=== PATIENT | female | born 1990 | race African-American/Black ===

== ENCOUNTER → 2020-03-26 11:01 | Outpatient (BNVA) | payer BC, SELFPAY | PROVIDERS: PCP Internal Medicine; Visit Provider Advanced Practice Midwife | DX: Z76.89 Persons encountering health services in other specified circumstances (principal) ==

== ENCOUNTER 2020-06-12 08:07 | Outpatient (REF) | payer BC, SELFPAY | END 2020-06-12 08:08 | disposition home or self-care (01) | LOC: HO.LAB 08:07 | PROVIDERS: PCP Internal Medicine; Visit Provider Internal Medicine | DX: Z20.822 Contact with and (suspected) exposure to COVID-19 (principal) | CPT/HCPCS: 36415; C9803; U0003 ==

== ENCOUNTER 2020-07-05 14:57 | Outpatient (REF) | payer BC, SELFPAY | END 2020-07-05 14:58 | disposition home or self-care (01) | LOC: HO.LAB 14:57 | PROVIDERS: PCP Internal Medicine; Visit Provider Advanced Practice Midwife | DX: Z01.419 Encounter for gynecological examination (general) (routine) without abnormal findings (principal) | CPT/HCPCS: 88142 ==

== ENCOUNTER 2021-04-01 09:37 | Outpatient (REF) | payer BC, SELFPAY ==
[2021-04-01 09:50] LABS: MANUAL DIFF FLAG NO
[2021-04-01 10:05] LABS: Basophils Percent Auto 0.4 % (0-2); Eosinophils Absolute Auto 0.2 X10*3/uL (0.0-0.4); Eosinophils Percent Auto 1.9 % (0-4); Hematocrit 42.3 % (37.0-47.0); Hemoglobin 14.3 g/dl (12.0-16.0); Imm Gran Abs Auto 0.03 X10*3/uL (0.00-0.03); Imm Gran Pct Auto 0.3 % (0.0-0.4); Lymphocytes Absolute Auto 2.2 X10*3/uL (1.2-4.9); Lymphocytes Percent Auto 24.3 % (20-40); Mean Corpuscular HGB Conc 33.8 g/dl (31.0-35.0); Mean Corpuscular Hemoglobin 31.4 pg (27.0-33.0); Mean Platelet Volume 9.7 fL (9.4-12.3); Monocytes Absolute Auto 0.5 X10*3/uL (0.1-1.2); Monocytes Percent Auto 5.7 % (2-11); Neutrophils Absolute Auto 6.18 x10*3/uL (2.0-8.3); Neutrophils Percent Auto 67.4 % (45-73); Platelet Count 264 X10*3/uL (160-400); Red Blood Count 4.55 X10*6/uL (4.20-5.50); Red Cell Distribution Width 12.4 % (11.0-16.0); White Blood Count 9.2 X10*3/uL (4.8-10.8)
[2021-04-01 10:50] LABS: Thyroid Stimulating Hormone 1.39 uIU/mL (0.32-4.0)
[2021-04-01 10:55] LABS: Alanine Aminotransferase 15 U/L (0-31); Albumin Level 4.3 g/dL (3.5-5.0); Alkaline Phosphatase 33 U/L (39-117); Anion Gap 13 (12-20); Aspartate Amino Transferase 19 U/L (5-31); Bilirubin Total 0.6 mg/dL (0.0-1.0); Blood Urea Nitrogen 9 mg/dL (9-16); Calcium 9.2 mg/dL (8.4-10.2); Carbon Dioxide 24 mmol/L (22-29); Chloride 107 mmol/L (96-108); Cholesterol 145 mg/dL; Estimated Glomerular Filt Rate > 60; Glucose Fasting 84 mg/dL (60-99); HDL Cholesterol 57 mg/dL; LDL Cholesterol Calculated 70 mg/dl; Potassium 4.4 mmol/L (3.3-5.1); Sodium 140 mmol/L (135-145); Total Protein 7.5 g/dL (6.5-8.0); Triglycerides 90 mg/dL
== END 2021-04-01 09:38 | disposition home or self-care (01) ==
LOC: HO.LAB 09:37
PROVIDERS: PCP Internal Medicine; Visit Provider Internal Medicine
DX: Z00.00 Encounter for general adult medical examination without abnormal findings (principal)
CPT/HCPCS: 36415; 80053; 80061; 84443; 85025

== ENCOUNTER → 2021-07-09 13:57 | Outpatient (BNVA) | payer BC, SELFPAY | PROVIDERS: Visit Provider Advanced Practice Midwife ==

== ENCOUNTER 2022-05-22 10:56 | Outpatient (REF) | payer BC, SELFPAY ==
[2022-05-22 11:09] LABS: MANUAL DIFF FLAG NO
[2022-05-22 11:38] LABS: Basophils Percent Auto 0.6 % (0-2); Eosinophils Absolute Auto 0.3 X10*3/uL (0.0-0.4); Eosinophils Percent Auto 3.9 % (0-4); Hematocrit 41.1 % (37.0-47.0); Hemoglobin 13.7 g/dl (12.0-16.0); Imm Gran Abs Auto 0.01 X10*3/uL (0.00-0.03); Imm Gran Pct Auto 0.2 % (0.0-0.4); Lymphocytes Absolute Auto 2.5 X10*3/uL (1.2-4.9); Lymphocytes Percent Auto 39.1 % (20-40); Mean Corpuscular HGB Conc 33.3 g/dl (31.0-35.0); Mean Corpuscular Hemoglobin 30.7 pg (27.0-33.0); Mean Corpuscular Volume 92.2 fL (80.0-98.0); Mean Platelet Volume 9.8 fL (9.4-12.3); Monocytes Absolute Auto 0.4 X10*3/uL (0.1-1.2); Monocytes Percent Auto 6.4 % (2-11); Neutrophils Absolute Auto 3.2 x10*3/uL (2.0-8.3); Neutrophils Percent Auto 49.8 % (45-73); Platelet Count 252 X10*3/uL (160-400); Red Blood Count 4.46 X10*6/uL (4.20-5.50); Red Cell Distribution Width 12.3 % (11.0-16.0); White Blood Count 6.4 X10*3/uL (4.8-10.8)
[2022-05-22 12:09] LABS: Alanine Aminotransferase 15 U/L (0-31); Albumin Level 4.5 g/dL (3.5-5.0); Alkaline Phosphatase 44 U/L (39-117); Anion Gap 13 (12-20); Aspartate Amino Transferase 18 U/L (5-31); Bilirubin Total 0.8 mg/dL (0.0-1.0); Blood Urea Nitrogen 8 mg/dL (9-16); Calcium 9.6 mg/dL (8.4-10.2); Carbon Dioxide 27 mmol/L (22-29); Chloride 104 mmol/L (96-108); Cholesterol 154 mg/dL; Estimated Glomerular Filt Rate > 60; Glucose Fasting 84 mg/dL (60-99); HDL Cholesterol 63 mg/dL; LDL Cholesterol Calculated 80 mg/dl; Potassium 4.3 mmol/L (3.3-5.1); Sodium 140 mmol/L (135-145); Total Protein 7.5 g/dL (6.5-8.0); Triglycerides 56 mg/dL
== END 2022-05-22 10:57 | disposition home or self-care (01) ==
LOC: HO.LAB 10:56
PROVIDERS: PCP Internal Medicine; Visit Provider Internal Medicine
DX: Z13.0 Encounter for screening for diseases of the blood and blood-forming organs and certain disorders involving the immune mechanism (principal); I10 Essential (primary) hypertension; E78.5 Hyperlipidemia, unspecified
CPT/HCPCS: 36415; 80053; 80061; 85025

== ENCOUNTER 2022-08-12 08:05 | Outpatient (REF) | payer BC, SELFPAY ==
[2022-08-14 02:04] LABS: HPV mRNA E6/E7 rflx Not Detected (Not Detected)
== END 2022-08-12 08:06 | disposition home or self-care (01) ==
LOC: HO.LNP 08:05
PROVIDERS: PCP Internal Medicine; Visit Provider Advanced Practice Midwife
DX: Z01.419 Encounter for gynecological examination (general) (routine) without abnormal findings (principal)
CPT/HCPCS: 87624; 88142

== ENCOUNTER 2023-03-12 08:41 | Outpatient (REF) | payer BC, SELFPAY ==
[2023-03-12 09:00] LABS: MANUAL DIFF FLAG NO
[2023-03-12 09:27] LABS: Basophils Percent Auto 0.5 % (0-2); Eosinophils Absolute Auto 0.1 X10*3/uL (0.0-0.4); Eosinophils Percent Auto 1.6 % (0-4); Hematocrit 38.3 % (37.0-47.0); Hemoglobin 13.1 g/dl (12.0-16.0); Imm Gran Abs Auto 0.01 X10*3/uL (0.00-0.03); Imm Gran Pct Auto 0.1 % (0.0-0.4); Lymphocytes Absolute Auto 2.3 X10*3/uL (1.2-4.9); Lymphocytes Percent Auto 26.3 % (20-40); Mean Corpuscular HGB Conc 34.2 g/dl (31.0-35.0); Mean Corpuscular Hemoglobin 31.4 pg (27.0-33.0); Mean Corpuscular Volume 91.8 fL (80.0-98.0); Mean Platelet Volume 9.5 fL (9.4-12.3); Monocytes Absolute Auto 0.6 X10*3/uL (0.1-1.2); Monocytes Percent Auto 6.8 % (2-11); Neutrophils Absolute Auto 5.6 x10*3/uL (2.0-8.3); Neutrophils Percent Auto 64.7 % (45-73); Platelet Count 230 X10*3/uL (160-400); Red Blood Count 4.17 X10*6/uL (4.20-5.50); Red Cell Distribution Width 12.2 % (11.0-16.0); White Blood Count 8.6 X10*3/uL (4.8-10.8)
[2023-03-12 10:31] LABS: Alanine Aminotransferase 12 U/L (0-31); Albumin Level 4.2 g/dL (3.5-5.0); Alkaline Phosphatase 28 U/L (39-117); Anion Gap 12 (12-20); Aspartate Amino Transferase 16 U/L (5-31); Bilirubin Total 0.6 mg/dL (0.0-1.0); Blood Urea Nitrogen 8 mg/dL (9-16); Calcium 9.8 mg/dL (8.4-10.2); Carbon Dioxide 23 mmol/L (22-29); Chloride 106 mmol/L (96-108); Cholesterol 132 mg/dL (<200); Estimated Glomerular Filt Rate > 60; Glucose Fasting 80 mg/dL (60-99); HDL Cholesterol 60 mg/dL (>40); LDL Cholesterol Calculated 63 mg/dL (<100); Potassium 4.3 mmol/L (3.3-5.1); Sodium 137 mmol/L (135-145); Total Protein 7.4 g/dL (6.5-8.0); Triglycerides 49 mg/dL (<150)
== END 2023-03-12 08:42 | disposition home or self-care (01) ==
LOC: HO.LAB 08:41
PROVIDERS: PCP Internal Medicine; Referring Provider Obstetrics & Gynecology; Visit Provider Internal Medicine
DX: N28.9 Disorder of kidney and ureter, unspecified (principal); E78.5 Hyperlipidemia, unspecified; D64.9 Anemia, unspecified
CPT/HCPCS: 36415; 80053; 80061; 85025

== ENCOUNTER 2023-04-16 09:02 | Outpatient (AMB) | payer BC, SELFPAY ==
[2023-04-16 09:05] VITALS: BP 118/66; PULSE 79; O2SAT 100; BMI 19.7
--- NOTE | 2023-04-16 09:05 | MHC.PC.OV ---
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 per policy Accompanied by: Self / Same As Patient Allergies No Known Allergies Allergy (Verified 04/16/23 09:06) Medication List - Last Reconciled 04/16/23 by Coy Fraser MD multivitamin (Daily Multi-Vitamin tablet) 1 tab PO DAILY vit no.[id number] 27 mg iron- 800 mcg ( Vitamin) 1 tab PO sumatriptan succinate 25 mg PO Q2-4H PRN Tobacco use date assessed: 08/26/22 Dental Screening Dental Screen Date: 04/16/23 Did you have a dental visit in the last 12 months?: Yes Did you have a dental problem in the last 6 months where you did not have access to dental care?: No Was dental information given to patient?: Patient has dentist HPI Annual Exam HPI Details healthy; 11 weeks [facility] Medical History Ocular migraine Anxiety Surgical History Hx of tonsillectomy Family History Father HTN (hypertension) Paternal Aunt Heart attack Paternal Grandmother Pancreatic cancer Maternal Grandmother Colon cancer Maternal Uncle Liver cancer Social History Housing: House Alcohol intake: current Alcohol intake frequency: a few times a month Patient Tobacco Use Status: Never used Tobacco e-Cigarette/Vaping Use: Never Used Second Hand Smoke Exposure: No Substance Use Type: Marijuana service: No Current occupational status: employed Sexual orientation: Straight/Heterosexual Gender identity: Female Cognitive needs: No Hearing needs: No Vision needs: Yes (glasses) Female Reproductive History Menstrual Age of Menarche: 14 Questionnaire PHQ-9 Over the last 2 weeks, how often have you been bothered by any of the following problems? 1. Little interest or pleasure in doing things: not at all 2. Feeling down, depressed, or hopeless: not at all 3. Trouble falling or staying asleep, or sleeping too much: not at all 4. Feeling tired or having little energy: not at all 5. Poor appetite or overeating: not at all 6. Feeling bad about yourself - or that you are a failure or have let yourself or your family down: not at all 7. Trouble concentrating on things, such as reading the newspaper or watching television: not at all 8. Moving or speaking so slowly that other people could have noticed. Or the opposite - being so fidgety or restless that you have been moving around a lot more than usual: not at all 9. Thoughts that you would be better off or of hurting yourself in some way: not at all Total score: 0 Depression Screening Interpretation: Negative Depression Screening Done: Yes Source: Developed by Drs. Guillaume Ramey, Trice Bose, Vernon Joseph and colleagues, with an educational shen from [employer]. Thrive Questionnaire Date Thrive assessed: 08/26/22 AUDIT C Alcohol Use Questionnaire (AUDIT-C) 1. How often do you have a drink containing alcohol?: 2-4 times a month 2. How many drinks containing alcohol do you have on a typical day when you are drinking?: 1 or 2 Total Score: 2 MARTIN-7 AMB Questionnaire MARTIN-7 Date MARTIN - 7 assessed: 08/26/22 Source: Developed by Drs. Guillaume Ramey, Trice Bose, Vernon Joseph and colleagues, with an educational shen from [employer]. Review of Systems Const Denies chills, Denies fatigue, Denies headache(s) and Denies weight loss Eyes Denies change in vision, Denies diplopia and Denies eye pain ENT Denies vertigo, Denies dizziness, Denies headache(s) and Denies nasal discharge Card Denies chest pain, Denies rapid heart rate and Denies dyspnea on exertion Resp Denies chest congestion, Denies cough, Denies pain with cough and Denies dyspnea on exertion GI Denies abdominal pain, Denies hematochezia and Denies change in bowel habits Musc Denies myalgias, Denies arthralgias and Denies joint swelling Skin/Breast Denies lesions and Denies unusual bruising Neuro Denies vertigo, Denies dizziness, Denies headache(s) and Denies focal weakness Endo Denies fatigue Physical exam (Primary Care) Vital Signs: Last Vital Signs Pulse 79 04/16/23 09:05 BP 118/66 04/16/23 09:05 Pulse Ox 100 04/16/23 09:05 Oxygen Delivery Method Room Air 04/16/23 09:05 BMI result Body Mass Index 19.7 Tobacco/Smoking Status: Tobacco use Status Tobacco use date assessed 08/26/22 04/16/23 09:10 Patient Tobacco Use Status Never used Tobacco 04/16/23 09:10 e-Cigarette/Vaping Use Never Used 04/16/23 09:10 PHQ-9: PHQ-9 Score PHQ-9: Total score 0 04/16/23 09:27 Depression Screening Interpretation: Negative Thrive Assessment: Date of Thrive Assessment Date Thrive assessed 08/26/22 04/16/23 09:10 Const General: cooperative, healthy appearing and no acute distress Orientation/consciousness: oriented to person, oriented to place and oriented to time HENMT Head: Yes normal to inspection, Yes normocephalic and Yes atraumatic Mouth: Normal oral and palatal mucosa present and tongue normal Throat: Yes posterior oropharynx normal and Yes uvula midline Eyes General: appearance normal, both eyes and all related structures Neck Neck: Yes normal visual inspection, Yes full ROM and Yes no lymphadenopathy Thyroid: Thyroid normal Carotids: normal carotid upstroke Chest Chest palpation & inspection: normal inspection of the chest Resp Effort & Inspection: normal respiratory effort and able to speak in complete sentences Auscultation: clear to auscultation bilaterally Cardio Jugular venous distension: no JVD Palpation: normal PMI Rate: regular rate Rhythm: regular rhythm Heart sounds: S1 normal heart sound present and S2 normal heart sound present GI Inspection: Yes normal to inspection Palpation (GI): Soft to palpation and No hepatosplenomegaly present Auscultation: normal bowel sounds General: Yes no CVA tenderness Back/Spine/Pelvis Back: no CVA tenderness Skin General skin exam: no rashes or lesions noted Neuro General: oriented to person, oriented to place and oriented to time Extrem General: Yes normal to inspection and Yes full ROM Office Procedures Flu Questionnaire Does the patient have a severe egg allergy?: No Does the patient have severe life threatening allergies?: No Does the patient have a fever or illness today?: No Has the patient ever had Guillain-Delavan Syndrome?: No Has the patient ever had any past reaction to a flu shot?: No Immunizations flu vacc [id number] 6mos up(PF) 60 mcg(15 mcgx4)/0.5 mL IM syringe Performing Provider: Coy Fraser MD Performing Location: [facility] Administered by: HANNAH Rubio on 04/16/23 09:27 Dose Route Admin Location Dispensed Lot Number Expiration Date 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 mL IM Left Deltoid 0.5 mL [id number] 11/28/23 [id number] [employer] VIS Given Date VIS Provided VIS Publication Date 04/16/23 Single Vaccine 21 Eligibility Eligibility Date Funding Source Not [facility] Eligible 04/16/23 Private Assessment and Plan Assessment & Plan (1) Physical exam: Code(s): Z00.00 - Encounter for general adult medical examination without abnormal findings Plan: stable; labs Orders: Orders Influenza [id number] Immunization Today Z23 - Encounter for immunization Medications: Refilled sumatriptan succinate do not exceed 8 doses per 24 hrs 25 mg PO Q2-4H PRN 20 tabs 5RF migraine headache Coding Level of Care Code Est Pt Prev Care 18-39y(04340) Diagnoses Physical exam Z00.00
== END 2023-04-16 09:32 | disposition home or self-care (01) ==
PROVIDERS: Visit Provider Internal Medicine
DX: Z00.00 Encounter for general adult medical examination without abnormal findings (principal); Z23 Encounter for immunization
CPT/HCPCS: 90471; 90686; 99395

== ENCOUNTER 2023-05-06 09:22 | Outpatient (AMB) | payer BC, SELFPAY ==
--- NOTE | 2023-05-06 09:26 | A.OFFVIS_ITS ---
Intake Vital Signs 3 05/06/23 09:44 Height 54 ft Weight 113 lb 2 oz BMI 0.2 BP 123/66 Blood Pressure Location Lt brachial Position Sitting Pulse 89 Intake Visit Reasons: Pilonidal cyst without abscess Intake Note: Patient is seen in office for evaluation and treatment of a pilonidal cyst. 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 This started approximately 1.5 years ago and she reports multiple recurrent infections resulting in increased pain with sitting along with redness in the skin. She denies any bleeding or discharge and denies needing incision and drainage. The most recent infection occurred approximately 2 weeks ago and resolved spontaneously. She denies any surgery in this location. She is concerned about recurrent infections during her and was interested in having pilonidal cystectomy. [facility] Medical History Ocular migraine Anxiety Surgical History Hx of tonsillectomy Family History Father HTN (hypertension) Paternal Aunt Heart attack Paternal Grandmother Pancreatic cancer Maternal Grandmother Colon cancer Maternal Uncle Liver cancer Social History Housing: House Alcohol intake: current Alcohol intake frequency: a few times a month Patient Tobacco Use Status: Never used Tobacco e-Cigarette/Vaping Use: Never Used Second Hand Smoke Exposure: No Substance Use Type: Marijuana service: No Current occupational status: employed Sexual orientation: Straight/Heterosexual Gender identity: Female Cognitive needs: No Hearing needs: No Vision needs: Yes (glasses) Female Reproductive History Menstrual Age of Menarche: 14 Review of Systems Const All systems reviewed & are unremarkable except as noted in HPI and below Denies chills, Denies fever(s) and Reports headache(s) ENT Reports headache(s) Skin/Breast Reports as per HPI Neuro Reports headache(s) Physical Exam Const General: cooperative and no acute distress Nutritional Appearance: well nourished Orientation/consciousness: patient oriented x3 Limitations: no limitations HEENT Head: Yes normocephalic and Yes atraumatic Ears: hearing grossly normal bilaterally Resp Effort & Inspection: normal respiratory effort, no audible wheezes, no cough and no respiratory distress Cardio Jugular venous distension: no JVD GI Inspection: Yes normal to inspection Back/Spine/Pelvis Back/spine/pelvis image: 2 1. Bluish discoloration consistent with a prior pilonidal cyst abscess measuring approximately 1 cm in diameter. There is tenderness to palpation although no fluctuance noted. Skin Other: Warm, dry, no rash Neuro General: patient oriented x3 Extrem General: Yes no clubbing, cyanosis or edema Assessment & Plan Assessment & Plan (1) Pilonidal cyst: Code(s): L05.91 - Pilonidal cyst without abscess Plan 33-year-old female patient presenting with recurring pilonidal infections which have developed over the past 1.5 years none requiring incision and drainage. Patient is currently 14 weeks and entering her 2nd trimester. It may be possible to perform a local excision of this lesion either under local anesthesia or with intravenous sedation. I reviewed the procedure, risks, and alternatives, and she consents to A pilonidal cystectomy. She will call us when she is ready to schedule the procedure. Coding Level of Care Code New Pt Level 4 (89311) Diagnoses Pilonidal cyst L05.91
[2023-05-06 09:44] VITALS: BP 123/66; PULSE 89
== END 2023-05-06 09:46 | disposition home or self-care (01) ==
PROVIDERS: PCP Internal Medicine; Visit Provider Surgery
DX: L05.91 Pilonidal cyst without abscess (principal)
CPT/HCPCS: 99204

== ENCOUNTER → 2023-05-06 09:22 | Outpatient (BNVA) | payer BC, SELFPAY | PROVIDERS: PCP Internal Medicine; Visit Provider Surgery ==

== ENCOUNTER 2024-02-01 09:51 | Outpatient (AMB) | payer OTHER, SELFPAY ==
[2024-02-01 09:53] VITALS: BP 116/74; PULSE 62; O2SAT 98; BMI 19.2
--- NOTE | 2024-02-01 09:53 | MHC.PC.OV ---
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 Accompanied by: Self / Same As Patient Allergies No Known Allergies Allergy (Verified 02/01/24 09:53) Tobacco use date assessed: 02/01/24 Dental Screening Dental Screen Date: 02/01/24 Did you have a dental visit in the last 12 months?: Yes Did you have a dental problem in the last 6 months where you did not have access to dental care?: No Was dental information given to patient?: Patient has dentist HPI Lt wrist pain HPI Details left wrist pain for a month; carries infant on that side [facility] Medical History Ocular migraine Anxiety Surgical History Hx of tonsillectomy Family History Father HTN (hypertension) Paternal Aunt Heart attack Paternal Grandmother Pancreatic cancer Maternal Grandmother Colon cancer Maternal Uncle Liver cancer Social History Housing: House Alcohol intake: current Alcohol intake frequency: a few times a month Patient Tobacco Use Status: Never used Tobacco Tobacco use type: Cigarette e-Cigarette/Vaping Use: Never Used Second Hand Smoke Exposure: No Substance Use Type: Marijuana service: No Current occupational status: employed Sexual orientation: Straight/Heterosexual Gender identity: Female Cognitive needs: No Hearing needs: No Vision needs: Yes (glasses) Female Reproductive History Menstrual Age of Menarche: 14 Questionnaire PHQ-9 Over the last 2 weeks, how often have you been bothered by any of the following problems? 1. Little interest or pleasure in doing things: not at all 2. Feeling down, depressed, or hopeless: not at all 3. Trouble falling or staying asleep, or sleeping too much: not at all 4. Feeling tired or having little energy: not at all 5. Poor appetite or overeating: not at all 6. Feeling bad about yourself - or that you are a failure or have let yourself or your family down: not at all 7. Trouble concentrating on things, such as reading the newspaper or watching television: not at all 8. Moving or speaking so slowly that other people could have noticed. Or the opposite - being so fidgety or restless that you have been moving around a lot more than usual: not at all 9. Thoughts that you would be better off or of hurting yourself in some way: not at all Total score: 0 Depression Screening Interpretation: Negative Depression Screening Done: Yes Source: Developed by Drs. Guillaume Ramey, Trice Bose, Vernon Joseph and colleagues, with an educational shen from [employer]. Thrive Questionnaire Date Thrive assessed: 02/01/24 I am a: Patient What is your living situation today?: I have a steady place to live Within the past 12 months, did the food you bought not last and you didn't have the money to get more?: Never true Within the past 12 months, did you worry whether your food would run out before you got money to buy more?: Never true THRIVE Score: 0 AUDIT C Alcohol Use Questionnaire (AUDIT-C) 1. How often do you have a drink containing alcohol?: 2-4 times a month 2. How many drinks containing alcohol do you have on a typical day when you are drinking?: 1 or 2 Total Score: 2 MRATIN-7 AMB Questionnaire MARTIN-7 Date MARTIN - 7 assessed: 02/01/24 Feeling nervous, anxious, or on edge: 0 = Not at all Not being able to stop or control worryin = Not at all Worrying too much about different things: 0 = Not at all Trouble relaxin = Not at all Being so restless that it is hard to sit still: 0 = Not at all Becoming easily annoyed or irritable: 0 = Not at all Feeling afraid as if something awful might happen: 0 = Not at all Total MARTIN-7 score (0-4 normal; 5-9 mild; 10-14 moderate; 15-21 severe): 0 Source: Developed by Drs. Guillaume Ramey, Trice Bose, Vernon Joseph and colleagues, with an educational shen from [employer]. MARTIN-7 Assessment Billing MARTIN-7 Assessment Tool: MARTIN-7 Assessment 30584 Review of Systems Const Denies chills, Denies headache(s) and Denies weight loss ENT Denies headache(s) Card Denies chest pain, Denies syncope, Denies irregular heart rhythm and Denies dyspnea Resp Denies chest congestion, Denies cough and Denies dyspnea GI Denies abdominal pain, Denies change in stool character, Denies nausea and Denies vomiting Musc Denies deformity and Denies joint swelling Neuro Denies syncope and Denies headache(s) Physical exam (Primary Care) Vital Signs: Last Vital Signs Pulse 62 02/01/24 09:53 BP 116/74 02/01/24 09:53 Pulse Ox 98 02/01/24 09:53 Oxygen Delivery Method Room Air 02/01/24 09:53 BMI result Body Mass Index 19.2 Tobacco/Smoking Status: Tobacco use Status Tobacco use date assessed 02/01/24 02/01/24 09:58 Patient Tobacco Use Status Never used Tobacco 02/01/24 09:58 Tobacco use type Cigarette 02/01/24 09:58 e-Cigarette/Vaping Use Never Used 02/01/24 09:58 PHQ-9: PHQ-9 Score PHQ-9: Total score 0 02/01/24 09:58 Depression Screening Interpretation: Negative Thrive Assessment: Date of Thrive Assessment Date Thrive assessed 02/01/24 02/01/24 09:58 Const General: cooperative, comfortable, no acute distress and alert Neck Neck: Yes no lymphadenopathy Thyroid: Thyroid normal Resp Effort & Inspection: normal respiratory effort Auscultation: clear to auscultation bilaterally Percussion: percussion normal Cardio Jugular venous distension: no JVD Palpation: normal PMI Rate: regular rate Rhythm: regular rhythm Heart sounds: S1 normal heart sound present and S2 normal heart sound present GI Inspection: Yes normal to inspection Palpation (GI): No hepatosplenomegaly present Skin General skin exam: no rashes or lesions noted Extrem General: Yes no clubbing, cyanosis or edema Assessment and Plan Assessment & Plan (1) Tendonitis of wrist, left: Code(s): M77.8 - Other enthesopathies, not elsewhere classified Plan: ice nsaids brace Medications: New arm brace (Wrist Brace Medium) As directed 1 ea 0RF Coding Level of Care Code Est Pt Level 3 (35056) Diagnoses Tendonitis of wrist, left M77.8 Additional Codes MARTIN-7 Assessment Billing - MARTIN-7 Assessment Tool: MARTIN-7 Assessment 40631 ([id number])
== END 2024-02-01 10:10 | disposition home or self-care (01) ==
PROVIDERS: PCP Internal Medicine; Visit Provider Internal Medicine
DX: M77.8 Other enthesopathies, not elsewhere classified (principal)
CPT/HCPCS: 99213

== ENCOUNTER 2024-04-21 09:07 | Outpatient (REF) | payer OTHER, SELFPAY ==
[2024-04-21 09:57] LABS: MANUAL DIFF FLAG NO
[2024-04-21 10:38] LABS: Basophils Percent Auto 0.5 % (0-2); Eosinophils Absolute Auto 0.1 X10*3/uL (0.0-0.4); Eosinophils Percent Auto 1.8 % (0-4); Hematocrit 39.7 % (37.0-47.0); Hemoglobin 13.4 g/dl (12.0-16.0); Imm Gran Abs Auto 0.01 X10*3/uL (0.00-0.03); Imm Gran Pct Auto 0.2 % (0.0-0.4); Lymphocytes Absolute Auto 2.6 X10*3/uL (1.2-4.9); Lymphocytes Percent Auto 41.4 % (20-40); Mean Corpuscular HGB Conc 33.8 g/dl (31.0-35.0); Mean Corpuscular Hemoglobin 30.8 pg (27.0-33.0); Mean Corpuscular Volume 91.3 fL (80.0-98.0); Mean Platelet Volume 9.9 fL (9.4-12.3); Monocytes Absolute Auto 0.4 X10*3/uL (0.1-1.2); Monocytes Percent Auto 6.9 % (2-11); Neutrophils Absolute Auto 3.1 x10*3/uL (2.0-8.3); Neutrophils Percent Auto 49.2 % (45-73); Platelet Count 239 X10*3/uL (160-400); Red Blood Count 4.35 X10*6/uL (4.20-5.50); White Blood Count 6.2 X10*3/uL (4.8-10.8)
[2024-04-21 11:26] LABS: Alanine Aminotransferase 21 U/L (0-31); Albumin Level 4.6 g/dL (3.5-5.0); Anion Gap 15 (12-20); Aspartate Amino Transferase 24 U/L (5-31); Bilirubin Total 0.8 mg/dL (0.0-1.0); Blood Urea Nitrogen 13 mg/dL (9-16); Calcium 9.6 mg/dL (8.4-10.2); Carbon Dioxide 23 mmol/L (22-29); Chloride 106 mmol/L (96-108); Cholesterol 149 mg/dL (<200); Estimated Glomerular Filt Rate > 60; Glucose Fasting 64 mg/dL (60-99); HDL Cholesterol 76 mg/dL (>40); LDL Cholesterol Calculated 66 mg/dL (<100); Sodium 140 mmol/L (135-145); Thyroid Stimulating Hormone 1.06 uIU/mL (0.32-4.0); Total Protein 7.6 g/dL (6.5-8.0); Triglycerides 37 mg/dL (<150)
[2024-04-21 11:33] LABS: Alkaline Phosphatase 46 U/L (39-117)
== END 2024-04-21 09:08 | disposition home or self-care (01) ==
LOC: HO.LAB 09:07
PROVIDERS: PCP Internal Medicine; Visit Provider Internal Medicine
DX: Z00.00 Encounter for general adult medical examination without abnormal findings (principal); F44.1 Dissociative fugue; Z13.6 Encounter for screening for cardiovascular disorders; Z13.220 Encounter for screening for lipoid disorders; Z13.0 Encounter for screening for diseases of the blood and blood-forming organs and certain disorders involving the immune mechanism; Z13.29 Encounter for screening for other suspected endocrine disorder
CPT/HCPCS: 36415; 80053; 80061; 84443; 85025; 96127

== ENCOUNTER 2024-04-21 09:07 | Outpatient (AMB) | payer OTHER, SELFPAY ==
--- NOTE | 2024-04-21 09:09 | A.OFFPC_ITS ---
Vital Signs 04/21/24 09:10 Height 5 ft 4 in Weight 102 lb 4 oz BMI 17.5 BP 120/66 Blood Pressure Location Lt brachial Position Sitting Pulse 76 Pulse Source Pulse Oximeter Pulse Oximetry (%) 98 Oxygen Delivery Method Room Air Intake Visit Reasons: annual Intake Note: Patient is here today for a physical. Pt decline flu shot today. 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 Accompanied by: Child Allergies No Known Allergies Allergy (Verified 04/21/24 09:10) Medication List - Last Reconciled 04/24/24 by Coy Fraser MD arm brace (Wrist Brace Medium) As directed multivitamin (Daily Multi-Vitamin tablet) 1 tab PO DAILY vit no.[id number] 27 mg iron- 800 mcg ( Vitamin) 1 tab PO Tobacco use date assessed: 04/21/24 Dental Screening Dental Screen Date: 02/01/24 HPI annual HPI Details healthy REPLACED BY [facility] Medical History Ocular migraine Anxiety Surgical History (Updated 04/21/24 @ 09:13 by HANNAH Hernandez) History of delivery Hx of tonsillectomy Family History (Updated 04/21/24 @ 09:10 by HANNAH Hernandez) Father HTN (hypertension) Paternal Aunt Heart attack Paternal Grandmother Pancreatic cancer Maternal Grandmother Colon cancer Maternal Uncle Liver cancer Social History Housing: House Alcohol intake: current Alcohol intake frequency: a few times a month Patient Tobacco Use Status: Never used Tobacco Tobacco use type: Cigarette e-Cigarette/Vaping Use: Never Used Second Hand Smoke Exposure: No Substance Use Type: Marijuana service: No Current occupational status: employed Sexual orientation: Straight/Heterosexual Gender identity: Female Cognitive needs: No Hearing needs: No Vision needs: Yes (glasses) Female Reproductive History Menstrual Age of Menarche: 14 Questionnaire PHQ-9 Over the last 2 weeks, how often have you been bothered by any of the following problems? 1. Little interest or pleasure in doing things: not at all 2. Feeling down, depressed, or hopeless: not at all 3. Trouble falling or staying asleep, or sleeping too much: not at all 4. Feeling tired or having little energy: not at all 5. Poor appetite or overeating: not at all 6. Feeling bad about yourself - or that you are a failure or have let yourself or your family down: not at all 7. Trouble concentrating on things, such as reading the newspaper or watching television: not at all 8. Moving or speaking so slowly that other people could have noticed. Or the opposite - being so fidgety or restless that you have been moving around a lot more than usual: not at all 9. Thoughts that you would be better off or of hurting yourself in some way: not at all Total score: 0 Depression Screening Interpretation: Negative Depression Screening Done: Yes Source: Developed by Drs. Guillaume Ramey, Trice Bose, Vernon Joseph and colleagues, with an educational shen from [employer]. Thrive Questionnaire Date Thrive assessed: 04/21/24 I am a: Patient What is your living situation today?: I have a steady place to live Within the past 12 months, did the food you bought not last and you didn't have the money to get more?: Never true Within the past 12 months, did you worry whether your food would run out before you got money to buy more?: Never true Do you have trouble paying for medicines?: No Do you have trouble getting transportation to medical appointments?: No Do you have trouble paying your heating and electricity bill?: No Do you have trouble taking care of your child, family member or friend?: No Do you have trouble with day-to-day activities such as bathing, preparing meals, shopping, managing finances, etc.?: No Are you currently unemployed and looking for a job?: No Are you interested in more education?: No Please select the resources that you would like help with: None Currently or been in a relationship where the following occur: No concerns reported THRIVE Score: 0 AUDIT C Alcohol Use Questionnaire (AUDIT-C) 1. How often do you have a drink containing alcohol?: Monthly or less 2. How many drinks containing alcohol do you have on a typical day when you are drinking?: 1 or 2 3. How often do you have six or more drinks on one occasion?: Never Total Score: 1 MARTIN-7 AMB Questionnaire MARTIN-7 Date MARTIN - 7 assessed: 04/21/24 Feeling nervous, anxious, or on edge: 0 = Not at all Not being able to stop or control worryin = Not at all Worrying too much about different things: 0 = Not at all Trouble relaxin = Not at all Being so restless that it is hard to sit still: 0 = Not at all Becoming easily annoyed or irritable: 0 = Not at all Feeling afraid as if something awful might happen: 0 = Not at all Total MARTIN-7 score (0-4 normal; 5-9 mild; 10-14 moderate; 15-21 severe): 0 Source: Developed by Drs. Guillaume Ramey, Trice Bose, Vernon Joseph and colleagues, with an educational shen from [employer]. Review of Systems Const Denies chills, Denies fatigue, Denies headache(s) and Denies weight loss Eyes Denies change in vision, Denies diplopia and Denies eye pain ENT Denies vertigo, Denies dizziness, Denies headache(s) and Denies nasal discharge Card Denies chest pain, Denies rapid heart rate and Denies dyspnea on exertion Resp Denies chest congestion, Denies cough, Denies pain with cough and Denies dyspnea on exertion GI Denies abdominal pain, Denies hematochezia and Denies change in bowel habits Musc Denies myalgias, Denies arthralgias and Denies joint swelling Skin/Breast Denies lesions and Denies unusual bruising Neuro Denies vertigo, Denies dizziness, Denies headache(s) and Denies focal weakness Endo Denies fatigue Physical exam (Primary Care) Vital Signs: Last Vital Signs Pulse 76 04/21/24 09:10 BP 120/66 04/21/24 09:10 Pulse Ox 98 04/21/24 09:10 Oxygen Delivery Method Room Air 04/21/24 09:10 BMI result Body Mass Index 17.5 Tobacco/Smoking Status: Tobacco use Status Tobacco use date assessed 04/21/24 04/21/24 09:15 Patient Tobacco Use Status Never used Tobacco 04/21/24 09:15 Tobacco use type Cigarette 04/21/24 09:15 e-Cigarette/Vaping Use Never Used 04/21/24 09:15 PHQ-9: PHQ-9 Score PHQ-9: Total score 0 04/21/24 09:15 Depression Screening Interpretation: Negative Thrive Assessment: Date of Thrive Assessment Date Thrive assessed 04/21/24 04/21/24 09:15 Currently or been in a relationship where the following occur: No concerns reported Const General: cooperative, healthy appearing and no acute distress Orientation/consciousness: oriented to person, oriented to place and oriented to time HENMT Head: Yes normal to inspection, Yes normocephalic and Yes atraumatic Mouth: Normal oral and palatal mucosa present and tongue normal Throat: Yes posterior oropharynx normal and Yes uvula midline Eyes General: appearance normal, both eyes and all related structures Neck Neck: Yes normal visual inspection, Yes full ROM and Yes no lymphadenopathy Thyroid: Thyroid normal Carotids: normal carotid upstroke Chest Chest palpation & inspection: normal inspection of the chest Resp Effort & Inspection: normal respiratory effort and able to speak in complete sentences Auscultation: clear to auscultation bilaterally Cardio Jugular venous distension: no JVD Palpation: normal PMI Rate: regular rate Rhythm: regular rhythm Heart sounds: S1 normal heart sound present and S2 normal heart sound present GI Inspection: Yes normal to inspection Palpation (GI): Soft to palpation and No hepatosplenomegaly present Auscultation: normal bowel sounds General: Yes no CVA tenderness Back/Spine/Pelvis Back: no CVA tenderness Skin General skin exam: no rashes or lesions noted Neuro General: oriented to person, oriented to place and oriented to time Extrem General: Yes normal to inspection and Yes full ROM Coding Level of Care Code Est Pt Prev Care 18-39y(30070) Diagnoses Physical exam Z00.00 Assessment & Plan Assessment & Plan (1) Physical exam: Code(s): Z00.00 - Encounter for general adult medical examination without abnormal fi ndings Category: Medical Plan: stable; do labs Orders: Orders Thyroid Stimulating Hormone 04/21/24 Z13.29 - Encounter for screening for other suspected endocrine disorder Comprehensive Cantil. Panel Fast 04/21/24 Z13.9 - Encounter for screening, unspecified Lipid Panel 04/21/24 Z13.220 - Encounter for screening for lipoid disorders Complete Blood Count Auto Diff 04/21/24 Z13.0 - Encounter for screening for diseases of the blood and blood-forming organs and certain disorders involving the immune mechanism
[2024-04-21 09:10] VITALS: BP 120/66; PULSE 76; O2SAT 98; BMI 17.5
== END 2024-04-21 09:27 | disposition home or self-care (01) ==
PROVIDERS: PCP Internal Medicine; Visit Provider Internal Medicine
DX: Z00.00 Encounter for general adult medical examination without abnormal findings (principal)

== ENCOUNTER 2024-07-12 09:43 | Outpatient (AMB) | payer BC, SELFPAY ==
--- NOTE | 2024-07-12 09:46 | MHC.PC.OV ---
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 Accompanied by: Self / Same As Patient Allergies No Known Allergies Allergy (Verified 07/12/24 09:48) Tobacco use date assessed: 07/12/24 Dental Screening Dental Screen Date: 07/12/24 Did you have a dental visit in the last 12 months?: Yes Did you have a dental problem in the last 6 months where you did not have access to dental care?: No Was dental information given to patient?: Patient has dentist HPI unintentional weight loss HPI Details several piund weight loss; eating well; breast feeding [facility] Medical History (Updated 07/12/24 @ 10:02 by Coy Fraser MD) Ocular migraine Anxiety Surgical History History of delivery Hx of tonsillectomy Family History Father HTN (hypertension) Paternal Aunt Heart attack Paternal Grandmother Pancreatic cancer Maternal Grandmother Colon cancer Maternal Uncle Liver cancer Social History Housing: House Alcohol intake: current Alcohol intake frequency: a few times a month Patient Tobacco Use Status: Never used Tobacco e-Cigarette/Vaping Use: Never Used Second Hand Smoke Exposure: No Substance Use Type: Marijuana service: No Current occupational status: unemployed Sexual orientation: Straight/Heterosexual Gender identity: Female Cognitive needs: No Hearing needs: No Vision needs: Yes (glasses) Female Reproductive History Menstrual Age of Menarche: 14 Questionnaire PHQ-9 Over the last 2 weeks, how often have you been bothered by any of the following problems? 1. Little interest or pleasure in doing things: not at all 2. Feeling down, depressed, or hopeless: not at all 3. Trouble falling or staying asleep, or sleeping too much: not at all 4. Feeling tired or having little energy: not at all 5. Poor appetite or overeating: not at all 6. Feeling bad about yourself - or that you are a failure or have let yourself or your family down: not at all 7. Trouble concentrating on things, such as reading the newspaper or watching television: not at all 8. Moving or speaking so slowly that other people could have noticed. Or the opposite - being so fidgety or restless that you have been moving around a lot more than usual: not at all 9. Thoughts that you would be better off or of hurting yourself in some way: not at all Total score: 0 Depression Screening Interpretation: Negative Depression Screening Done: Yes Source: Developed by Drs. Guillaume Ramey, Trice Bose, Vernon Joseph and colleagues, with an educational shen from [employer]. Thrive Questionnaire Date Thrive assessed: 07/12/24 I am a: Patient What is your living situation today?: I have a steady place to live Within the past 12 months, did the food you bought not last and you didn't have the money to get more?: Never true Within the past 12 months, did you worry whether your food would run out before you got money to buy more?: Never true Do you have trouble paying for medicines?: No Do you have trouble getting transportation to medical appointments?: No Do you have trouble paying your heating and electricity bill?: No Do you have trouble taking care of your child, family member or friend?: No Do you have trouble with day-to-day activities such as bathing, preparing meals, shopping, managing finances, etc.?: No Are you currently unemployed and looking for a job?: No Are you interested in more education?: No Please select the resources that you would like help with: None Currently or been in a relationship where the following occur: No concerns reported THRIVE Score: 0 AUDIT C Alcohol Use Questionnaire (AUDIT-C) 1. How often do you have a drink containing alcohol?: Monthly or less 2. How many drinks containing alcohol do you have on a typical day when you are drinking?: 1 or 2 3. How often do you have six or more drinks on one occasion?: Never Total Score: 1 MARTIN-7 AMB Questionnaire MARTIN-7 Date MARTIN - 7 assessed: 07/12/24 Feeling nervous, anxious, or on edge: 0 = Not at all Not being able to stop or control worryin = Not at all Worrying too much about different things: 0 = Not at all Trouble relaxin = Not at all Being so restless that it is hard to sit still: 0 = Not at all Becoming easily annoyed or irritable: 0 = Not at all Feeling afraid as if something awful might happen: 0 = Not at all Total MARTIN-7 score (0-4 normal; 5-9 mild; 10-14 moderate; 15-21 severe): 0 Source: Developed by Drs. Guillaume Ramey, Trice Bose, Vernon Joseph and colleagues, with an educational shen from [employer]. Review of Systems Const Denies chills, Denies headache(s) and Denies weight loss ENT Denies headache(s) Card Denies chest pain, Denies syncope, Denies irregular heart rhythm and Denies dyspnea Resp Denies chest congestion, Denies cough and Denies dyspnea GI Denies abdominal pain, Denies change in stool character, Denies nausea and Denies vomiting Musc Denies deformity and Denies joint swelling Neuro Denies syncope and Denies headache(s) Physical exam (Primary Care) Vital Signs: Last Vital Signs Pulse 78 07/12/24 09:47 BP 102/70 07/12/24 09:47 Pulse Ox 98 07/12/24 09:47 Oxygen Delivery Method Room Air 07/12/24 09:47 BMI result Body Mass Index 17.0 Tobacco/Smoking Status: Tobacco use Status Tobacco use date assessed 07/12/24 07/12/24 09:53 Patient Tobacco Use Status Never used Tobacco 07/12/24 09:46 Tobacco use type 07/12/24 09:53 e-Cigarette/Vaping Use Never Used 07/12/24 09:46 PHQ-9: PHQ-9 Score PHQ-9: Total score 0 07/12/24 09:53 Depression Screening Interpretation: Negative Thrive Assessment: Date of Thrive Assessment Date Thrive assessed 07/12/24 07/12/24 09:46 Currently or been in a relationship where the following occur: No concerns reported Const General: cooperative, comfortable, no acute distress and alert Neck Neck: Yes no lymphadenopathy Thyroid: Thyroid normal Resp Effort & Inspection: normal respiratory effort Auscultation: clear to auscultation bilaterally Percussion: percussion normal Cardio Jugular venous distension: no JVD Palpation: normal PMI Rate: regular rate Rhythm: regular rhythm Heart sounds: S1 normal heart sound present and S2 normal heart sound present GI Inspection: Yes normal to inspection Palpation (GI): No hepatosplenomegaly present Skin General skin exam: no rashes or lesions noted Extrem General: Yes no clubbing, cyanosis or edema Coding Level of Care Code Est Pt Level 3 (83509) Diagnoses Weight loss R63.4 Assessment & Plan Assessment & Plan (1) Weight loss: Code(s): R63.4 - Abnormal weight loss Category: Medical Plan: labs ordered Orders: Orders Basic Metabolic Panel 07/12/24 R63.4 - Abnormal weight loss IRON PROFILE 07/12/24 E61.1 - Iron deficiency Erythrocyte Sedimentation Rate 07/12/24 R63.4 - Abnormal weight loss Thyroid Stimulating Hormone 07/12/24 Z13.29 - Encounter for screening for other suspected endocrine disorder Complete Blood Count Auto Diff 07/12/24 Z13.0 - Encounter for screening for diseases of the blood and blood-forming organs and certain disorders involving the immune mechanism
[2024-07-12 09:47] VITALS: BP 102/70; PULSE 78; O2SAT 98; BMI 17.0
== END 2024-07-12 10:10 | disposition home or self-care (01) ==
PROVIDERS: PCP Internal Medicine; Visit Provider Internal Medicine
DX: R63.4 Abnormal weight loss (principal)

== ENCOUNTER 2024-07-12 09:43 | Outpatient (REF) | payer BC, SELFPAY ==
[2024-07-12 10:37] LABS: MANUAL DIFF FLAG NO
[2024-07-12 12:08] LABS: Basophils Percent Auto 0.5 % (0-2); Eosinophils Absolute Auto 0.1 X10*3/uL (0.0-0.4); Eosinophils Percent Auto 2.1 % (0-4); Hematocrit 39.9 % (37.0-47.0); Hemoglobin 13.1 g/dl (12.0-16.0); Imm Gran Abs Auto 0.01 X10*3/uL (0.00-0.03); Imm Gran Pct Auto 0.2 % (0.0-0.4); Lymphocytes Absolute Auto 2.4 X10*3/uL (1.2-4.9); Mean Corpuscular HGB Conc 32.8 g/dl (31.0-35.0); Mean Corpuscular Hemoglobin 30.8 pg (27.0-33.0); Mean Corpuscular Volume 93.7 fL (80.0-98.0); Mean Platelet Volume 10.3 fL (9.4-12.3); Monocytes Absolute Auto 0.4 X10*3/uL (0.1-1.2); Monocytes Percent Auto 7.1 % (2-11); Neutrophils Absolute Auto 2.6 x10*3/uL (2.0-8.3); Neutrophils Percent Auto 47.1 % (45-73); Platelet Count 231 X10*3/uL (160-400); Red Blood Count 4.26 X10*6/uL (4.20-5.50); Red Cell Distribution Width 13.2 % (11.0-16.0); White Blood Count 5.6 X10*3/uL (4.8-10.8)
[2024-07-12 12:31] LABS: Anion Gap 11 (12-20); Blood Urea Nitrogen 11 mg/dL (9-16); Calcium 9.6 mg/dL (8.4-10.2); Carbon Dioxide 28 mmol/L (22-29); Chloride 107 mmol/L (96-108); Estimated Glomerular Filt Rate > 60; Glucose Random 100 mg/dL (60-115); Iron 129 mcg/dL (30-160); Percent Iron Saturation 51 % (15-50); Potassium 4.1 mmol/L (3.3-5.1); Sodium 142 mmol/L (135-145); Total Iron Binding Capacity 254 mcg/dL (228-428); Unsaturated Iron Binding 125 ug/dL
[2024-07-12 12:45] LABS: Thyroid Stimulating Hormone 0.93 uIU/mL (0.32-4.0)
[2024-07-12 12:47] LABS: Erythrocyte Sedimentation Rate 6 MM/HR (0-20)
== END 2024-07-12 09:44 | disposition home or self-care (01) ==
LOC: HO.LAB 09:43
PROVIDERS: PCP Internal Medicine; Visit Provider Internal Medicine
DX: R63.4 Abnormal weight loss (principal); E61.1 Iron deficiency; Z13.29 Encounter for screening for other suspected endocrine disorder; Z13.0 Encounter for screening for diseases of the blood and blood-forming organs and certain disorders involving the immune mechanism
CPT/HCPCS: 36415; 80048; 83540; 84443; 85025; 85652

== ENCOUNTER 2024-08-09 15:26 | Outpatient (AMB) | payer BC, SELFPAY ==
[2024-08-09 15:31] VITALS: BP 102/66; PULSE 78; O2SAT 98; BMI 17.3
--- NOTE | 2024-08-09 15:31 | A.OFFVIS_ITS ---
Vital Signs 08/09/24 15:31 Height 5 ft 4 in Weight 100 lb 15.547 oz BMI 17.3 BP 102/66 Blood Pressure Location Rt brachial Position Sitting Pulse 78 Pulse Source Pulse Oximeter Pulse Oximetry (%) 98 Oxygen Delivery Method Room Air Intake Visit Reasons: Abnormal weightloss Intake Note: New patient internally referred by PCP for Abnormal Weight loss. Allergies No Known Allergies Allergy (Verified 08/09/24 15:33) HPI Comments Details: The patient is a 34-year-old female presenting with significant weight loss and associated joint pain. She reports losing approximately 45 pounds over 10 months since her childbirth and a subsequent regimen. Despite an unaltered appetite, the weight loss was noticeable early , prompting her concern. The patient also details joint pain in various areas, exacerbated during activities like stair climbing, suggesting a potential musculoskeletal component. Thyroid levels checked by her primary physician are reported to be normal. Additional symptoms include night sweats and occasional heart palpitations. Her medical history includes a resolved abdominal pain episode and a single previous significant weight loss episode secondary to mononucleosis. On medication, the patient uses oral contraceptives and topical acne treatment, with no recent medication changes. The patient is , which she believes has significantly contributed to her weight loss. There is no reported smoking or use of recreational drugs. Meds - Norgestrel (oral contraceptive) - Clindamycin + Benzoyl peroxide (topical for acne) - Environmental allergy medications ROS - Constitutional: Reports significant unintentional weight loss - Cardiovascular: Denies passing out, reports occasional heart palpitations - Respiratory: Denies shortness of breath - Gastrointestinal: Denies nausea, vomiting, diarrhea; resolved brief abdominal pain episode - Musculoskeletal: Reports joint pain in multiple areas - Neurologic: Reports occasional dizziness upon standing - Endocrine: Denies history of thyroid issues - Hematologic: No reported coagulation or blood disorders - Allergic/Immunologic: Reports usage of environmental allergy medications [facility] Medical History (Updated 07/12/24 @ 10:02 by Coy Fraser MD) Ocular migraine Anxiety Surgical History History of delivery Hx of tonsillectomy Family History Father HTN (hypertension) Paternal Aunt Heart attack Paternal Grandmother Pancreatic cancer Maternal Grandmother Colon cancer Maternal Uncle Liver cancer Social History Housing: House Alcohol intake: current Alcohol intake frequency: a few times a month Patient Tobacco Use Status: Never used Tobacco e-Cigarette/Vaping Use: Never Used Second Hand Smoke Exposure: No Substance Use Type: Marijuana service: No Current occupational status: unemployed Sexual orientation: Straight/Heterosexual Gender identity: Female Cognitive needs: No Hearing needs: No Vision needs: Yes (glasses) Female Reproductive History Menstrual Age of Menarche: 14 Physical Exam Const Other: - HEENT- Mouth and tongue appeared normal - Neck- Thyroid of normal size (~15 grams); no palpable thyroid nodules - Cardiovascular- Regular rhythm, normal S1 S2, no murmurs or gallops - Skin- No signs of vitiligo or acanthosis nigricans; no skin hyperpigmentation - Assessment & Plan Assessment & Plan (1) Weight loss: Code(s): R63.4 - Abnormal weight loss Category: Medical Plan: Abnormal weight loss unlikely endocrine etiology. Unlikely causes from endocrine standpoint which usually present earlier on could be Lizet's syndrome resulting in secondary adrenal insufficiency and secondary hypothyroidism but the timeframe does not fit this diagnosis. Suspected non endocrine etiology perhaps inflammatory 1. Significant weight loss: Further evaluation for endocrine causes is necessary. Cortisol levels will be assessed in the morning to rule out adrenal insufficiency. Consider ACTH stimulation testing if cortisol levels are abnormal. I will also reassess the TSH with a free T4 to rule out secondary hypothyroidism 2. Joint pain: Inflammation assessment through CRP and ESR is suggested, with referral to rheumatology for potential autoimmune investigation. This can be done by the patient's primary care provider 3. Night sweats and palpitations: Continued monitoring and evaluation of symptoms. The patient had an opportunity to ask questions regarding treatment plan. The patient expressed understanding and agreement with the above treatment plan. I discussed with the patient the potential underlying endocrine issues contributing to her significant weight loss and joint pain, including the implications of physiology and adrenal insufficiency. Explained the importance of testing cortisol levels to exclude adrenal dysfunction. We also addressed potential inflammatory causes behind joint s ymptoms and the necessity of involving rheumatology for an in-depth assessment. The patient was informed of possible future evaluations, including an ACTH stimulation test, should her cortisol levels suggest insufficiency. We reviewed the usual testing time in the morning for cortisol levels and informed her that results might necessitate further testing. I discussed with the patient the potential underlying endocrine issues contributing to her significant weight loss and joint pain, including the implications of physiology and adrenal insufficiency. Explained the importance of testing cortisol levels to exclude adrenal dysfunction. We also addressed potential inflammatory causes behind joint symptoms and the necessity of involving rheumatology for an in-depth assessment. The patient was informed of possible future evaluations, including an ACTH stimulation test, should her cortisol levels suggest insufficiency. We reviewed the usual testing time in the morning for cortisol levels and informed her that results might necessitate further testing. Patient was informed and verbally consented to the use of an ambient scribe for clinic note documentation during this visit. Orders: Orders Cortisol Random Today R63.4 - Abnormal weight loss Thyroid Stimulating Hormone Today R63.4 - Abnormal weight loss Free T4 (Free Thyroxine) Today R63.4 - Abnormal weight loss Coding Level of Care Code New Pt Level 4 (53933) Diagnoses Weight loss R63.4
== END 2024-08-09 16:00 | disposition home or self-care (01) ==
LOC: HO.ENCR 15:27
PROVIDERS: PCP Internal Medicine; Visit Provider Internal Medicine Endocrinology, Diabetes & Metabolism
DX: R63.4 Abnormal weight loss (principal)
CPT/HCPCS: 99204

== ENCOUNTER 2024-08-12 09:10 | Outpatient (REF) | payer BC, SELFPAY ==
[2024-08-12 10:45] LABS: Cortisol Random 11.9 ug/dL
[2024-08-12 10:47] LABS: Free T4 (Free Thyroxine) 1.05 ng/dL (0.71-1.85); Thyroid Stimulating Hormone 0.94 uIU/mL (0.32-4.0)
== END 2024-08-12 09:11 | disposition home or self-care (01) ==
LOC: HO.LAB 09:10
PROVIDERS: PCP Physician Assistant; Visit Provider Internal Medicine Endocrinology, Diabetes & Metabolism
DX: R63.4 Abnormal weight loss (principal)
CPT/HCPCS: 36415; 82533; 84439; 84443

== ENCOUNTER 2024-08-23 13:04 | Outpatient (AMB) | payer BC, SELFPAY ==
[2024-08-23 13:09] VITALS: BP 102/64; PULSE 81; O2SAT 98; BMI 17.4
--- NOTE | 2024-08-23 13:09 | MHC.OFFVIS ---
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 Blood test including thyroid levels in a.m. cortisol level were normal. The patient is a 34-year-old female presenting with unexplained weight loss and joint pain. She reports that her weight has stabilized, with no additional loss noted. A history of joint pain has been noted, and evaluation by a shared services and outsourcing manager has been suggested. She has experienced no abnormalities in bowel movements such as diarrhea. Recent laboratory evaluations, including cortisol and thyroid function tests, have returned within normal parameters, indicating no current endocrine dysfunction.- Gastrointestinal: Denies diarrhea. [facility] Medical History Ocular migraine Anxiety Surgical History History of delivery Hx of tonsillectomy Family History Father HTN (hypertension) Paternal Aunt Heart attack Paternal Grandmother Pancreatic cancer Maternal Grandmother Colon cancer Maternal Uncle Liver cancer Social History Housing: House Alcohol intake: current Alcohol intake frequency: a few times a month Patient Tobacco Use Status: Never used Tobacco e-Cigarette/Vaping Use: Never Used Second Hand Smoke Exposure: No Substance Use Type: Marijuana service: No Current occupational status: unemployed Sexual orientation: Straight/Heterosexual Gender identity: Female Cognitive needs: No Hearing needs: No Vision needs: Yes (glasses) Female Reproductive History Menstrual Age of Menarche: 14 Physical Exam Vital Signs: Last Vital Signs Pulse 81 08/23/24 13:09 BP 102/64 08/23/24 13:09 Pulse Ox 98 08/23/24 13:09 Oxygen Delivery Method Room Air 08/23/24 13:09 BMI result Body Mass Index 17.4 Assessment & Plan Assessment & Plan (1) Weight loss: Code(s): R63.4 - Abnormal weight loss Category: Medical Plan: 1. Unexplained weight loss: The patient's recent stabilization in weight is noted. No immediate endocrine dysfunction is apparent given normal cortical and thyroid levels. Coordination with the primary care physician for continued monitoring is advised, with further evaluation if necessary. 2. Joint pain: Further assessment by a shared services and outsourcing manager is advised for persistent joint pain. Coordination with Dr. Noé Lainez for rheumatology referral is recommended. The patient had an opportunity to ask questions regarding treatment plan. The patient expressed understanding and agreement with the above treatment plan. In our discussion, I explained the results of the recent blood tests, which indicated normal cortisol and thyroid levels. No clear etiology for the weight loss from an endocrine perspective was identified. We discussed the importance of consulting with the primary care physician, Dr. Noé Lainez, to ensure continuous monitoring and coordination of care, specifically focusing on the reported joint pain and the necessity of a rheumatology evaluation. - Continue to monitor weight and note any changes. - Follow up with your primary care physician, Dr. Noé Lainez, to discuss further evaluation and management options for joint pain. - Schedule a rheumatology consultation if advised by your primary care physician. - Report any new or worsening symptoms promptly. Patient was informed and verbally consented to the use of an ambient scribe for clinic note documentation during this visit. Coding Level of Care Code Est Pt Level 3 (98671) Diagnoses Weight loss R63.4
== END 2024-08-23 13:24 | disposition home or self-care (01) ==
LOC: HO.ENCR 13:05
PROVIDERS: PCP Physician Assistant; Visit Provider Internal Medicine Endocrinology, Diabetes & Metabolism
DX: R63.4 Abnormal weight loss (principal)
CPT/HCPCS: 99213

== ENCOUNTER 2024-11-30 13:22 | Outpatient (AMB) | payer BC, SELFPAY ==
--- NOTE | 2024-11-30 13:29 | A.OFFPC_ITS ---
Vital Signs 11/30/24 13:30 Height 5 ft 4 in Weight 102 lb 6 oz BMI 17.6 BP 130/70 Blood Pressure Location Lt brachial Position Sitting Pulse 79 Pulse Source Pulse Oximeter Pulse Oximetry (%) 98 Oxygen Delivery Method Room Air Intake Visit Reasons: patricia Dr Fraser Allergies No Known Allergies Allergy (Verified 11/30/24 13:36) Medication List - Last Reconciled 11/30/24 by Amador Lainez PA-C arm brace (Wrist Brace Medium) As directed loratadine (Allergy Relief (loratadine)) 10 mg PO DAILY norethindrone (contraceptive) mg PO DAILY vit no.440-xmag-jfzor 27 mg iron- 800 mcg ( Vitamin) 1 tab PO DAILY wsihwlkh-5-PLB-lemon balm xt 50-12.5-0.5 mg tabs PO Tobacco use date assessed: 07/12/24 Dental Screening Dental Screen Date: 07/12/[address] Fraser HPI Details Patient is a 34-year-old female here today for a transfer of care visit. Patient has no significant past medical history. The patient experienced weight loss, which was evaluated by an invasive cardiovascular technologist a few months ago. The weight loss was attributed to and a fast metabolism, similar to a condition experienced by the clinician's . The weight has since stabilized. The patient reported joint pain, described as tendon-like and deep, particularly around the collarbone area. The invasive cardiovascular technologist suggested a rheumatology referral, suspecting a musculoskeletal issue. The joint pain has subsided as the patient gained weight. The patient reports difficulty hearing, especially in noisy environments, and sometimes turns up the TV volume and uses subtitles. The patient is considering an audiological evaluation. The patient experiences sinus infections every February, attributed to allergies. Previously, a dentist provided Z-Axel prescriptions to manage these infections. [facility] Medical History Ocular migraine Anxiety Surgical History History of delivery Hx of tonsillectomy Family History Father HTN (hypertension) Paternal Aunt Heart attack Paternal Grandmother Pancreatic cancer Maternal Grandmother Colon cancer Maternal Uncle Liver cancer Social History (Updated 11/30/24 @ 13:43 by Amador Lainez PA-C) Housing: House Alcohol intake: current Alcohol intake frequency: a few times a month Patient Tobacco Use Status: Never used Tobacco e-Cigarette/Vaping Use: Never Used Second Hand Smoke Exposure: No Substance Use Type: Marijuana service: No Current occupational status: unemployed Sexual orientation: Straight/Heterosexual Gender identity: Female Cognitive needs: No Hearing needs: No Vision needs: Yes (glasses) Female Reproductive History Menstrual Age of Menarche: 14 Questionnaire PHQ-9 Over the last 2 weeks, how often have you been bothered by any of the following problems? 1. Little interest or pleasure in doing things: not at all 2. Feeling down, depressed, or hopeless: not at all 3. Trouble falling or staying asleep, or sleeping too much: not at all 4. Feeling tired or having little energy: not at all 5. Poor appetite or overeating: not at all 6. Feeling bad about yourself - or that you are a failure or have let yourself or your family down: not at all 7. Trouble concentrating on things, such as reading the newspaper or watching television: not at all 8. Moving or speaking so slowly that other people could have noticed. Or the opposite - being so fidgety or restless that you have been moving around a lot more than usual: not at all 9. Thoughts that you would be better off or of hurting yourself in some way: not at all Total score: 0 Depression Screening Interpretation: Negative Depression Screening Done: Yes 90371 - PHQ-9 Billing: Yes Source: Developed by Drs. Guillaume Ramey, Trice Bose, Vernon Joseph and colleagues, with an educational shen from [employer]. Thrive Questionnaire Date Thrive assessed: 11/30/24 I am a: Patient What is your living situation today?: I have a steady place to live Within the past 12 months, did the food you bought not last and you didn't have the money to get more?: Never true Within the past 12 months, did you worry whether your food would run out before you got money to buy more?: Never true Do you have trouble paying for medicines?: No Do you have trouble getting transportation to medical appointments?: No Do you have trouble paying your heating and electricity bill?: No Do you have trouble taking care of your child, family member or friend?: No Do you have trouble with day-to-day activities such as bathing, preparing meals, shopping, managing finances, etc.?: Yes Are you currently unemployed and looking for a job?: No Are you interested in more education?: No Please select the resources that you would like help with: Childcare Currently or been in a relationship where the following occur: No concerns reported THRIVE Score: 0 AUDIT C Alcohol Use Questionnaire (AUDIT-C) 1. How often do you have a drink containing alcohol?: Monthly or less Total Score: 1 MARTIN-7 AMB Questionnaire MARTIN-7 Date MARTIN - 7 assessed: 11/30/24 Feeling nervous, anxious, or on edge: 0 = Not at all Not being able to stop or control worryin = Not at all Worrying too much about different things: 0 = Not at all Trouble relaxin = Several days Being so restless that it is hard to sit still: 0 = Not at all Becoming easily annoyed or irritable: 0 = Not at all Feeling afraid as if something awful might happen: 0 = Not at all Total MARTIN-7 score (0-4 normal; 5-9 mild; 10-14 moderate; 15-21 severe): 1 Source: Developed by Drs. Guillaume Ramey, Trice Bose, Vernon Joseph and colleagues, with an educational shen from [employer]. MARTIN-7 Assessment Billing MARTIN-7 Assessment Tool: MARTIN-7 Assessment 19412 Review of Systems Const Denies headache(s) Eyes Denies loss of vision ENT Denies vertigo, Denies dizziness, Denies headache(s) and Denies sore throat Card Denies chest pain, Denies leg edema and Denies lightheadedness Resp Denies cough, Denies hemoptysis and Denies wheezing GI Denies abdominal pain, Denies melena, Denies constipation, Denies diarrhea and Denies vomiting Denies urinary frequency, Denies dysuria and Denies urinary urgency Musc Denies arthralgias, Denies joint swelling, Denies numbness and Denies tingling Neuro Denies Abnormal speech present, Denies behavioral changes, Denies vertigo, Denies dizziness, Denies headache(s), Denies loss of vision, Denies memory loss, Denies numbness and Denies tingling Psych Denies anxiety, Denies behavioral changes, Denies depression, Denies memory loss and Denies panic attacks Roshan/Lymph Denies easy bleeding and Denies easy bruising Aller/Immun Denies wheezing Physical exam (Primary Care) Vital Signs: Last Vital Signs Pulse 79 11/30/24 13:30 BP 130/70 11/30/24 13:30 Pulse Ox 98 11/30/24 13:30 Oxygen Delivery Method Room Air 11/30/24 13:30 BMI result Body Mass Index 17.6 Tobacco/Smoking Status: Tobacco use Status Tobacco use date assessed 07/12/24 11/30/24 13:35 Patient Tobacco Use Status Never used Tobacco 11/30/24 13:35 Tobacco use type 07/14/24 09:01 e-Cigarette/Vaping Use Never Used 11/30/24 13:35 PHQ-9: PHQ-9 Score PHQ-9: Total score 0 11/30/24 13:35 Depression Screening Interpretation: Negative Thrive Assessment: Date of Thrive Assessment Date Thrive assessed 11/30/24 11/30/24 13:35 Currently or been in a relationship where the following occur: No concerns reported Const General: healthy appearing, no acute distress, alert and awake Nutritional Appearance: well nourished Orientation/consciousness: oriented to person, oriented to place and oriented to time HENMT Ears: TM's normal bilaterally General nose exam: Normal nasal mucous membranes and turbinates present Eyes Conjunctivae: conjunctivae normal Sclerae: sclerae normal Pupils: Equal, round and reactive pupils present Neck Neck: Yes no lymphadenopathy and Yes no JVD Thyroid: Thyroid normal Carotids: no bruits Resp Effort & Inspection: normal respiratory effort and not tachypneic Auscultation: no crackles, no rales, no rhonchi and no wheezes Cardio Rate: regular rate Rhythm: regular rhythm Heart sounds: no murmurs and normal S1 and S2 GI Palpation (GI): Soft to palpation, nontender, no hepatomegaly and no splenomegaly Auscultation: normal bowel sounds Skin General skin exam: no rashes or lesions noted and dry skin Neuro General: oriented to person, oriented to place and oriented to time Cranial nerves: Yes Equal, round and reactive pupils present Speech: No Abnormal speech present Gait exam (Neuro): Normal gait present Motor exam (neuro): no tremor noted Extrem Right upper extremity: full ROM Left upper extremity: full ROM Right lower extremity: full ROM; no edema Left lower extremity: full ROM; no edema Psych Mental Status: mental status grossly normal Speech and movement: Normal speech and movement present Affect: normal affect Attitude: cooperative Thought process: Normal thought process present Coding Level of Care Code Est Pt Level 4 (72181) Diagnoses Polyarthralgia M25.50 Hearing difficulty of both ears H91.93 Screening for diabetes mellitus (DM) Z13.1 Additional Codes MARTIN-7 Assessment Billing - MARTIN-7 Assessment Tool: MARTIN-7 Assessment 50648 ([id number]) PHQ-9 - 44393 - PHQ-9 Billing: Yes ([id number]) Assessment & Plan Assessment & Plan (1) Polyarthralgia: Code(s): M25.50 - Pain in unspecified joint Category: Medical Plan: Patient had would seem to be a tendinitis in multiple areas of her body several months ago. These symptoms have resolved though has an upcoming appointment in March with a tankroom tender. (2) Hearing difficulty of both ears: Code(s): H91.93 - Unspecified hearing loss, bilateral Category: Medical Plan: Patient having difficulty hearing particularly in environments for other noise his happening. She will consider getting a audiological testing to evaluate for sensorineural hearing loss (3) Screening for diabetes mellitus (DM): Code(s): Z13.1 - Encounter for screening for diabetes mellitus Category: Medical Plan: As per HPI Orders: Orders Cyclic Citrullinated Peptide Today M25.50 - Pain in unspecified joint Comprehensive [place]. Panel Fast Today Z13.1 - Encounter for screening for diabetes mellitus Complete Blood Count no Diff Today Z13.1 - Encounter for screening for diabetes mellitus DANIELA Reflex Titer and Pattern Today M25.50 - Pain in unspecified joint Rheumatoid Factor Today M25.50 - Pain in unspecified joint Anti DNA DS Antibody Today M25.50 - Pain in unspecified joint
[2024-11-30 13:30] VITALS: BP 130/70; PULSE 79; O2SAT 98; BMI 17.6
== END 2024-11-30 13:52 | disposition home or self-care (01) ==
LOC: HO.HMCH 13:22
PROVIDERS: PCP Internal Medicine; Visit Provider Physician Assistant
DX: M25.50 Pain in unspecified joint (principal); H91.93 Unspecified hearing loss, bilateral; Z13.1 Encounter for screening for diabetes mellitus

== ENCOUNTER → 2024-11-30 13:22 | Outpatient (BNVA) | payer BC, SELFPAY | PROVIDERS: PCP Internal Medicine; Visit Provider Physician Assistant | DX: H91.93 Unspecified hearing loss, bilateral (principal); M25.50 Pain in unspecified joint | CPT/HCPCS: 96127 ==

== ENCOUNTER 2024-12-28 09:06 | Outpatient (REF) | payer BC, SELFPAY ==
[2024-12-28 09:44] LABS: Hematocrit 40.6 % (37.0-47.0); Hemoglobin 13.8 g/dl (12.0-16.0); Mean Corpuscular HGB Conc 34.0 g/dl (31.0-35.0); Mean Corpuscular Hemoglobin 30.5 pg (27.0-33.0); Mean Corpuscular Volume 89.6 fL (80.0-98.0); NRBC Abs Auto 0.000 X10*3/uL (0.0-0.012); NRBC Pct Auto 0.0 /100WBC (0.0-0.2); Platelet Count 238 X10*3/uL (160-400); Red Blood Count 4.53 X10*6/uL (4.20-5.50); White Blood Count 5.1 X10*3/uL (4.8-10.8)
[2024-12-28 10:28] LABS: Alanine Aminotransferase 16 U/L (0-31); Albumin Level 4.8 g/dL (3.5-5.0); Alkaline Phosphatase 52 U/L (39-117); Anion Gap 12 (12-20); Aspartate Amino Transferase 21 U/L (5-31); Blood Urea Nitrogen 11 mg/dL (9-16); Calcium 9.3 mg/dL (8.4-10.2); Carbon Dioxide 26 mmol/L (22-29); Chloride 106 mmol/L (96-108); Estimated Glomerular Filt Rate > 60; Potassium 4.5 mmol/L (3.3-5.1); Sodium 139 mmol/L (135-145); Total Protein 7.9 g/dL (6.5-8.0)
[2025-01-01 11:43] LABS: Anti Nuclear Antibody Screen NEGATIVE (NEGATIVE)
== END 2024-12-28 09:07 | disposition home or self-care (01) ==
LOC: HO.LAB 09:06
PROVIDERS: PCP Physician Assistant; Visit Provider Physician Assistant
DX: Z13.1 Encounter for screening for diabetes mellitus (principal); M25.50 Pain in unspecified joint
CPT/HCPCS: 36415; 80053; 85027; 86038; 86200; 86225; 86431

== ENCOUNTER 2025-04-03 10:55 | Outpatient (AMB) | payer BC, SELFPAY ==
[2025-04-03 11:00] VITALS: BP 100/90; PULSE 80; O2SAT 98; BMI 19.2
--- NOTE | 2025-04-03 11:00 | MHC.OFFVIS ---
Vital Signs 04/03/25 11:00 Height 5 ft 4 in Weight 111 lb 15.917 oz BMI 19.2 BP 100/90 H Blood Pressure Location Lt brachial Position Sitting Pulse 80 Pulse Source Pulse Oximeter Pulse Oximetry (%) 98 Oxygen Delivery Method Room Air Intake Visit Reasons: joint pain Intake Note: New patient presents today for joint pain. Accompanied by: Self / Same As Patient Allergies No Known Allergies Allergy (Verified 04/03/25 11:00) HPI HPI joint pain: Details: New patient evaluation for concern for rapid weight loss after delivery. She had a child in September 2023. Prior to conceiving her weight was around 110 lb. She was 90s earlier but was consciously working on gaining a healthy weight. Then she gained 30 lb with her . After her weight decreased 94lb within 6 months. She was also exclusively . She developed pain in her wrists and feet after having her baby. Flexion of ankles going down stairs causes pain. Occasional stiffness in wrists and elbows. Ankle pain persists. When she is holding her child she sometimes experiences clavicular pain left worse than right. She is constantly massaging the area when she feels fullness. She rocks her child to sleep during nap and that is a time when she is experiencing elbow pain. Her child is now 1-1/2 years old. During third trimester she had plantar fasciitis and sciatica relieved with regular massage, chiropractor and yoga. After these ailments resolved. Child is not breast feeding as he was with the introduction of milk. No joint swelling. 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 Occasionally drinks alcohol. Nonsmoker. Occasionally has marijuana. 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 [facility] Medical History (Reviewed 04/03/25 @ 11: by Katy Fang CMA) Ocular migraine Anxiety Surgical History (Reviewed 04/03/25 @ 11: by Katy Fang CMA) History of delivery Hx of tonsillectomy Family History (Reviewed 04/03/25 @ 11: by Katy Fang CMA) Father HTN (hypertension) Paternal Aunt Heart attack Paternal Grandmother Pancreatic cancer Maternal Grandmother Colon cancer Maternal Uncle Liver cancer Social History Housing: House Alcohol intake: current Alcohol intake frequency: a few times a month Patient Tobacco Use Status: Never used Tobacco e-Cigarette/Vaping Use: Never Used Second Hand Smoke Exposure: No Substance Use Type: Marijuana service: No Current occupational status: unemployed Sexual orientation: Straight/Heterosexual Gender identity: Female Cognitive needs: No Hearing needs: No Vision needs: Yes (glasses) Female Reproductive History Menstrual Age of Menarche: 14 Physical Exam Exam Exam: General: Comfortable CVS: RRR Respiratory: clear to auscultation bilaterally. Good respiratory effort Skin: No lesions seen MSK: Tender to palpate right medial epicondyle. She does not have synovitis. She has soft tissue swelling of medial left clavicle. No tenderness of 1st extensor compartments of bilateral hands. She has tenderness to palpate right lateral midfoot. Bony protuberance left medial midfoot is more pronounced in the right. Normal range of motion of upper extremities and lower extremities. Achilles tendons are tender on palpation. 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 We discussed conservative management. Code(s): M79.671 - Pain in right foot; M79.672 - Pain in left foot Category: Medical Plan: She will start using ibuprofen 600 mg b.i.d. for 2-3 weeks. If no change, then she will apply diclofenac gel 1% to affected area to 4 times a day Ankle support braces/compression sleeve prescribed PT ordered Return to clinic in 3-4 months (2) Achilles tendonitis, bilateral: Code(s): M76.61 - Achilles tendinitis, right leg; M76.62 - Achilles tendinitis, left leg Category: Medical Plan: See above (3) Medial epicondylitis, right elbow: Comment: Suspected. We discussed diagnosis and conservative management. Code(s): M77.01 - Medial epicondylitis, right elbow Category: Medical Plan: She will start using ibuprofen 600 mg b.i.d. for 2-3 weeks. If no change, then she will apply diclofenac gel 1% to affected area to 4 times a day Elbow support bands prescribed OT ordered Return to clinic in 3-4 months (4) Bilateral elbow joint pain: Comment: Suspected medial epicondylitis based on exam. We discussed conservative management. Code(s): M25.521 - Pain in right elbow; M25.522 - Pain in left elbow Category: Medical Plan: See above (5) De Quervain's tenosynovitis, bilateral: Comment: Suspected based on location of patient's pain with activity. Code(s): M65.4 - Radial styloid tenosynovitis [de Quervain] Category: Medical Plan: She will start using ibuprofen 600 mg b.i.d. for 2-3 weeks. If no change, then she will apply diclofenac gel 1% to affected area to 4 times a day Thumb spica splints prescribed OT ordered Return to clinic in 3-4 months (6) Pain of left clavicle: Code(s): M89.8X1 - Other specified disorders of bone, shoulder Category: Medical Plan: X-ray ordered Return to clinic in 3-4 months (7) Pain of right clavicle: Code(s): M89.8X1 - Other specified disorders of bone, shoulder Category: Medical Plan: X-ray ordered Return to clinic in 3-4 months (8) Weight loss: Comment: Resolved. Her weight is now back to baseline. Rheumatological workup is negative with negative DANIELA, rheumatoid factor and anti CCP antibody. She does not have synovitis on exam to suggest inflammatory arthritis. Her current presentation with multiple tendon strain and bilateral Achilles tendonitis is secondary to repetition related to her increased activity with child rearing. Low clinical suspicion for connective tissue disease contributing to her symptoms at this time. Code(s): R63.4 - Abnormal weight loss Category: Medical Plan: No further rheumatological workup is recommended at this time Orders: Orders PT Evaluation and Treatment Today M76.61 - Achilles tendinitis, right leg, M76.62 - Achilles tendinitis, left leg, M79.671 - Pain in right foot, M79.672 - Pain in left foot OT Evaluation and Treatment Today M25.521 - Pain in right elbow, M25.522 - Pain in left elbow, M65.4 - Radial styloid tenosynovitis [de Quervain], M77.01 - Medial epicondylitis, right elbow XR clavicle BI Today M89.8X1 - Other specified disorders of bone, shoulder Medications: New [Bilateral thumb spica splints] As directed 2 ea 0RF De quervain's tenosynovitis [Bilateral thumb spica splints] As directed 2 ea 0RF De quervain's tenosynovitis leg brace (Ankle Brace) As directed Bilateral ankle support brace/sleeve Dx: achilles tendonitis 2 ea 0RF [elbow support band] As directed 2 ea 0RF Bilateral Medial epicondylitis leg brace (Ankle Brace) As directed Bilateral ankle support brace/sleeve Dx: achilles tendonitis 2 ea 0RF [elbow support band] As directed 2 ea 0RF Bilateral Medial epicondylitis Coding Level of Care Code New Pt Level 4 (02969) Diagnoses Bilateral foot pain M79.671; M79.672 Achilles tendonitis, bilateral M76.61; M76.62 Medial epicondylitis, right elbow M77.01 Bilateral elbow joint pain M25.521; M25.522 De Quervain's tenosynovitis, bilateral M65.4 Pain of left clavicle M89.8X1 Pain of right clavicle M89.8X1 Weight loss R63.4
== END 2025-04-03 13:02 | disposition home or self-care (01) ==
LOC: HO.RHES 10:55
PROVIDERS: PCP Physician Assistant; Visit Provider Internal Medicine Rheumatology
DX: M79.671 Pain in right foot (principal); M79.672 Pain in left foot; M76.61 Achilles tendinitis, right leg; M76.62 Achilles tendinitis, left leg; M77.01 Medial epicondylitis, right elbow; M25.521 Pain in right elbow; M25.522 Pain in left elbow; M65.4 Radial styloid tenosynovitis [de Quervain]; M89.8X1 Other specified disorders of bone, shoulder; R63.4 Abnormal weight loss
CPT/HCPCS: 99204

== ENCOUNTER 2025-04-10 13:39 | Outpatient (REF) | payer BC, SELFPAY ==
--- NOTE | ~2025-04-10 | XR_ITS ---
EXAMINATION: Bilateral clavicle CLINICAL INFORMATION: Chronic clavicular pain COMPARISON: None TECHNIQUE: Bilateral clavicles each 2 views FINDINGS: Right clavicle: No evidence of acute fracture. No suspicious bony lesion. Minimal superior positioning of the clavicle with respect to the acromion. The acromioclavicular distance is within normal limits.. Sternoclavicular articulation is maintained. Left clavicle: No evidence of acute fracture. No suspicious bony lesion. Mild superior positioning of the clavicle with respect to the acromion, slightly more prominent as compared to the opposite side. Acromioclavicular distance is maintained. Sternoclavicular articulation is maintained. XR/XR clavicle BI IMPRESSION: Right clavicle: Apparent minimal malalignment of the acromion clavicular joint, could be related to positioning/technique versus mild sprain. Clinically correlate. Left clavicle: Apparent mild malalignment of the acromioclavicular joint could be related to positioning/technique versus mild sprain. Electronically signed by: Shine Holland MD 04/11/2025 10:54 AM [facility]
== END 2025-04-10 13:40 | disposition home or self-care (01) ==
LOC: HO.XRAY 13:39
PROVIDERS: PCP Physician Assistant; Visit Provider Internal Medicine Rheumatology
DX: M89.8X1 Other specified disorders of bone, shoulder (principal)
CPT/HCPCS: 73000

== ENCOUNTER → 2025-04-10 15:04 | Outpatient (BNV) | payer BC, SELFPAY | PROVIDERS: PCP Physician Assistant; Visit Provider Radiology Diagnostic Ultrasound | DX: M89.8X1 Other specified disorders of bone, shoulder (principal) | CPT/HCPCS: 73000 ==

== ENCOUNTER 2025-04-24 10:48 | Outpatient (AMB) | payer BC, SELFPAY ==
[2025-04-24 10:52] VITALS: BP 110/62; PULSE 44; TEMP 36.7; O2SAT 98; BMI 19.1
--- NOTE | 2025-04-24 10:52 | MHC.PC.OV ---
Vital Signs 04/24/25 10:52 Height 5 ft 4 in Weight 111 lb 2 oz BMI 19.1 BP 110/62 Blood Pressure Location Lt brachial Position Sitting Pulse 44 L Pulse Source Pulse Oximeter Temp 98.1 F Temp Source Temporal Artery Scan Pulse Oximetry (%) 98 Oxygen Delivery Method Room Air Intake Visit Reasons: PHYSICAL/patricia DR Fraser Allergies No Known Allergies Allergy (Verified 04/03/25 11:00) Medication List - Last Reconciled 04/24/25 by Amador Lainez PA-C arm brace (Wrist Brace Medium) As directed [Bilateral thumb spica splints As directed] [elbow support band As directed] leg brace (Ankle Brace) As directed Bilateral ankle support brace/sleeve Dx: achilles tendonitis loratadine (Allergy Relief (loratadine)) 10 mg PO DAILY norethindrone (contraceptive) mg PO DAILY vit no.[id number] 27 mg iron- 800 mcg ( Vitamin) 1 tab PO DAILY znhnwcld-1-VJC-lemon balm xt 50-12.5-0.5 mg tabs PO Tobacco use date assessed: 07/12/24 Dental Screening Dental Screen Date: 07/12/24 HPI PHYSICAL/patricia DR Fraser HPI Details Patient is a 35- year-old female here today for an annual physical. Patient has no significant past medical history. Polyarthralgias/ tendinitis: The patient reports widespread musculoskeletal issues, including tendinitis in the wrist, elbows, and Achilles tendon, as well as a mild collarbone sprain, which all started around the same time. The patient associates the onset of these issues with rapid weight loss and muscle loss after having a son, dropping to 95 pounds. For these issues, the patient has seen a surgical nurse, is currently receiving occupational therapy for the wrist and elbow, and is awaiting a physical therapy appointment for the feet. The patient reports significant weakness and is unable to perform a push-up due to wrist pain but would like to return to strength training. 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 with Pap screening Vaccines: Up-to-date with tetanus vaccine, COVID vaccine, declines flu vaccine today PFSH Medical History Ocular migraine Anxiety Surgical History History of delivery Hx of tonsillectomy Family History Father HTN (hypertension) Paternal Aunt Heart attack Paternal Grandmother Pancreatic cancer Maternal Grandmother Colon cancer Maternal Uncle Liver cancer Social History (Updated 04/24/25 @ 11:02 by Amador Lainez PA-C) Housing: House Alcohol intake: current Alcohol intake frequency: a few times a month Patient Tobacco Use Status: Never used Tobacco e-Cigarette/Vaping Use: Never Used Second Hand Smoke Exposure: No Substance Use Type: Marijuana service: No Current occupational status: unemployed Sexual orientation: Straight/Heterosexual Gender identity: Female Cognitive needs: No Hearing needs: No Vision needs: Yes (glasses) Female Reproductive History Menstrual Age of Menarche: 14 Questionnaire PHQ-9 Over the last 2 weeks, how often have you been bothered by any of the following problems? 1. Little interest or pleasure in doing things: not at all 2. Feeling down, depressed, or hopeless: not at all 3. Trouble falling or staying asleep, or sleeping too much: not at all 4. Feeling tired or having little energy: not at all 5. Poor appetite or overeating: not at all 6. Feeling bad about yourself - or that you are a failure or have let yourself or your family down: not at all 7. Trouble concentrating on things, such as reading the newspaper or watching television: not at all 8. Moving or speaking so slowly that other people could have noticed. Or the opposite - being so fidgety or restless that you have been moving around a lot more than usual: not at all 9. Thoughts that you would be better off or of hurting yourself in some way: not at all Total score: 0 Depression Screening Interpretation: Negative Depression Screening Done: Yes 36655 - PHQ-9 Billing: Patient declined-do not bill Source: Developed by Drs. Guillaume Ramey, Trice Bose, Vernon Joseph and colleagues, with an educational shen from [employer]. Thrive Questionnaire Date Thrive assessed: 11/28/24 I am a: Patient What is your living situation today?: I have a steady place to live Within the past 12 months, did the food you bought not last and you didn't have the money to get more?: Never true Within the past 12 months, did you worry whether your food would run out before you got money to buy more?: Never true Do you have trouble paying for medicines?: No Do you have trouble getting transportation to medical appointments?: No Do you have trouble paying your heating and electricity bill?: No Do you have trouble taking care of your child, family member or friend?: No Do you have trouble with day-to-day activities such as bathing, preparing meals, shopping, managing finances, etc.?: Yes Are you currently unemployed and looking for a job?: No Are you interested in more education?: No Please select the resources that you would like help with: Childcare Currently or been in a relationship where the following occur: No concerns reported THRIVE Score: 0 AUDIT C Alcohol Use Questionnaire (AUDIT-C) 1. How often do you have a drink containing alcohol?: Monthly or less Total Score: 1 MARTIN-7 AMB Questionnaire MARTIN-7 Date MARTIN - 7 assessed: 11/30/24 Feeling nervous, anxious, or on edge: 0 = Not at all Not being able to stop or control worryin = Not at all Worrying too much about different things: 0 = Not at all Trouble relaxin = Several days Being so restless that it is hard to sit still: 0 = Not at all Becoming easily annoyed or irritable: 0 = Not at all Feeling afraid as if something awful might happen: 0 = Not at all Total MARTIN-7 score (0-4 normal; 5-9 mild; 10-14 moderate; 15-21 severe): 1 Source: Developed by Drs. Guillaume Ramey, Trice Bose, Vernon Joseph and colleagues, with an educational shen from [employer]. MARTIN-7 Assessment Billing MARTIN-7 Assessment Tool: MARTIN-7 Assessment 81354 Review of Systems Const Denies body aches, Denies chills, Denies excessive sweating, Denies fatigue, Denies fever(s) and Denies headache(s) Eyes Denies blurry vision ENT Denies dysphagia, Denies vertigo, Denies dizziness, Denies headache(s), Denies hearing loss and Denies tinnitus Card Denies chest pain, Denies chest pain with activity, Denies syncope, Denies irregular heart rhythm and Denies dyspnea Resp Denies chest congestion, Denies cough, Denies hemoptysis, Denies dyspnea and Denies wheezing GI Denies abdominal pain, Denies melena, Denies hematochezia, Denies coffee ground emesis, Denies dysphagia, Denies diarrhea, Denies nausea and Denies vomiting Denies urinary frequency, Denies dysuria, Denies urinary hesitancy and Denies urinary urgency Musc Denies arthralgias, Denies limited range of motion, Denies muscle cramps and Denies muscle weakness Skin/Breast Denies rash and Denies skin ulcer Neuro Denies Abnormal speech present, Denies confusion, Denies vertigo, Denies dizziness, Denies syncope, Denies headache(s), Denies memory loss and Denies seizure-like activity Psych Denies anxiety, Denies confusion, Denies depression, Denies memory loss, Denies panic attacks and Denies paranoia Endo Denies excessive sweating, Denies fatigue, Denies flushing, Denies polydipsia and Denies polyuria Aller/Immun Denies wheezing Physical exam (Primary Care) Vital Signs: Last Vital Signs Temp 98.1 F 04/24/25 10:52 Pulse 44 L 04/24/25 10:52 BP 110/62 04/24/25 10:52 Pulse Ox 98 04/24/25 10:52 Oxygen Delivery Method Room Air 04/24/25 10:52 BMI result Body Mass Index 19.1 Tobacco/Smoking Status: Tobacco use Status Tobacco use date assessed 07/12/24 04/24/25 10:56 Patient Tobacco Use Status Never used Tobacco 04/24/25 10:56 Tobacco use type 07/14/24 09:01 e-Cigarette/Vaping Use Never Used 04/24/25 10:56 PHQ-9: PHQ-9 Score PHQ-9: Total score 0 04/24/25 10:56 Depression Screening Interpretation: Negative Thrive Assessment: Date of Thrive Assessment Date Thrive assessed 11/28/24 04/24/25 10:56 Currently or been in a relationship where the following occur: No concerns reported Const General: cooperative, comfortable, no acute distress, alert and awake; No confusion Orientation/consciousness: oriented to person, oriented to place, patient oriented x3 and No confusion HENMT Head: Yes normocephalic Ears: external ears normal and TM's normal bilaterally Face and sinus: No sinus tenderness Mouth: Normal oral and palatal mucosa present and tongue normal Teeth and gingiva: dentition normal and gingiva normal Throat: Yes posterior oropharynx normal, Yes tonsils normal and Yes uvula midline Eyes Conjunctivae: conjunctivae normal Sclerae: sclerae normal Pupils: Equal, round and reactive pupils present EOM: EOMs intact bilaterally Direct Ophthalmoscopy: No no photophobia Neck Neck: Yes no lymphadenopathy, No tender and Yes no JVD Thyroid: Thyroid normal Carotids: no bruits Chest Chest palpation & inspection: no tenderness Resp Effort & Inspection: normal respiratory effort, no audible wheezes, not labored and no stridor Auscultation: no crackles, no rales, no rhonchi and no wheezes Cardio Jugular venous distension: no JVD Rate: regular rate, not bradycardic and not tachycardic Rhythm: regular rhythm Bruits: no carotid bruits Peripheral pulses: Peripheral pulses 2+ throughout GI Inspection: Yes normal to inspection, No abdominal wall ecchymosis and No visible herniation Palpation (GI): Soft to palpation, nontender, no guarding, not rigid and No hepatosplenomegaly present Auscultation: normoactive bowel sounds General: Yes no CVA tenderness Back/Spine/Pelvis Back: no CVA tenderness and No back tenderness Cervical Spine: cervical ROM normal Thoracic/Lumbar Spine: thoracic and lumbar spine normal to inspection, straight leg raise negative bilaterally, No thoraco-lumbar ROM limited and No lumbar spinal tenderness Skin Lesions: no lesions Rashes: no rashes Wounds: no wounds Neuro General: oriented to person, oriented to place, patient oriented x3, CN's II-XI intact bilaterally and No confusion Cranial nerves: Yes Equal, round and reactive pupils present and Yes Normal accommodation reflex present Cognition (Neuro): normal cognition Speech: No Abnormal speech present Gait exam (Neuro): Normal gait present Motor exam (neuro): 5/5 motor strength present throughout Extrem Right upper extremity: full ROM; no cyanosis Left upper extremity: full ROM; no cyanosis Right lower extremity: no edema Left lower extremity: no edema Psych Appearance: grossly normal Mental Status: mental status grossly normal Affect: normal affect Attitude: cooperative Thought process: Normal thought process present Coding Level of Care Code Est Pt Prev Care 18-39y(68649) Diagnoses Annual physical exam Z00.00 Achilles tendonitis, bilateral M76.61; M76.62 Muscle weakness M62.81 Additional Codes MARTIN-7 Assessment Billing - MARTIN-7 Assessment Tool: MARTIN-7 Assessment 86575 ([id number]) Assessment & Plan Assessment & Plan (1) Annual physical exam: Code(s): Z00.00 - Encounter for general adult medical examination without abnormal findings Category: Medical Plan: As per HPI (2) Achilles tendonitis, bilateral: Code(s): M76.61 - Achilles tendinitis, right leg; M76.62 - Achilles tendinitis, left leg Category: Medical Plan: Patient is awaiting physical therapy for bilateral Achilles tendinitis. (3) Muscle weakness: Code(s): M62.81 - Muscle weakness (generalized) Category: Medical Plan: The plan for the patient's musculoskeletal complaints includes continuing with current therapies and implementing lifestyle modifications. The patient will continue with occupational therapy for the wrist and elbow and will follow up with physical therapy for the feet. It was recommended that the patient reintroduce strength training slowly, starting with light weights such as 10-pound dumbbells, to rebuild muscle strength. For pain management, the patient was advised to use ibuprofen as needed, with a suggested dose of 400-600 mg for anti-inflammatory effects, particularly before engaging in physical activities like OT or PT. The patient was cautioned against daily use of ibuprofen due to potential gastrointestinal and renal side effects. Applying ice to affected areas was also recommended as a safe anti-inflammatory measure. Dietary counseling was provided, explaining that high-carbohydrate diets can be inflammatory. It was suggested that the patient reduce carbohydrate intake and increase protein to help with strength gain. Orders: Orders Complete Blood Count no Diff Today Z13.1 - Encounter for screening for diabetes mellitus Comprehensive [place]. Panel Fast Today Z13.1 - Encounter for screening for diabetes mellitus
== END 2025-04-24 11:17 | disposition home or self-care (01) ==
LOC: HO.HMCH 10:49
PROVIDERS: PCP Physician Assistant; Visit Provider Physician Assistant
DX: Z00.00 Encounter for general adult medical examination without abnormal findings (principal); M76.61 Achilles tendinitis, right leg; M76.62 Achilles tendinitis, left leg; M62.81 Muscle weakness (generalized)

== ENCOUNTER → 2025-04-24 10:48 | Outpatient (BNVA) | payer BC, SELFPAY | PROVIDERS: PCP Internal Medicine; Visit Provider Physician Assistant | DX: Z00.00 Encounter for general adult medical examination without abnormal findings (principal); M76.61 Achilles tendinitis, right leg; M76.62 Achilles tendinitis, left leg; M62.81 Muscle weakness (generalized) | CPT/HCPCS: 96127 ==

== ENCOUNTER 2025-05-16 14:05 | Outpatient (REF) | payer BC, SELFPAY ==
[2025-05-16 18:26] LABS: Resp Syncy Virus RNA Qual PCR NEGATIVE (Negative); SARS COV2 PCR INHOUSE NEGATIVE (Negative)
== END 2025-05-16 14:06 | disposition home or self-care (01) ==
LOC: HO.LNP 14:05
PROVIDERS: PCP Physician Assistant
DX: R09.89 Other specified symptoms and signs involving the circulatory and respiratory systems (principal); J02.9 Acute pharyngitis, unspecified; Z79.899 Other long term (current) drug therapy
CPT/HCPCS: 87637

== ENCOUNTER 2025-05-16 14:05 | Outpatient (AMB) | payer BC, SELFPAY ==
--- NOTE | 2025-05-16 14:15 | A.OFFPC_ITS ---
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: No Accompanied by: Self / Same As Patient Allergies No Known Allergies Allergy (Verified 05/16/25 14:24) Medication List - Last Reconciled 05/16/25 by Ciarra Rosa PA-C arm brace (Wrist Brace Medium) As directed [Bilateral thumb spica splints As directed] [elbow support band As directed] leg brace (Ankle Brace) As directed Bilateral ankle support brace/sleeve Dx: achilles tendonitis loratadine (Allergy Relief (loratadine)) 10 mg PO DAILY norethindrone (contraceptive) mg PO DAILY isgwxvwr-6-MKV-lemon balm xt 50-12.5-0.5 mg tabs PO Tobacco use date assessed: 05/16/25 Dental Screening Dental Screen Date: 05/16/25 Did you have a dental visit in the last 12 months?: Yes Did you have a dental problem in the last 6 months where you did not have access to dental care?: No Was dental information given to patient?: Patient has dentist HPI praful emerson HPI Details 35 year old female with past medical his tory of insomnia last seen by Migel coming in for acute problem. Presenting with a 2-day history of constitutional and upper respiratory symptoms that acutely worsened one day prior to the visit. She reports diffuse myalgia, otalgia, sore throat, and a frontal headache. She has experienced nausea, which she attributes to postnasal drip, but denies vomiting or diarrhea. She reports an occasional cough, primarily for throat clearing, but denies chest pain or shortness of breath. She has had fevers, with the highest recorded temperature being 100.1?F, which has been managed with an mufs-amq-pzpibsd Tylenol-based combination product. [facility] Medical History Ocular migraine Anxiety Surgical History History of delivery Hx of tonsillectomy Family History Father HTN (hypertension) Paternal Aunt Heart attack Paternal Grandmother Pancreatic cancer Maternal Grandmother Colon cancer Maternal Uncle Liver cancer Social History Housing: House Alcohol intake: current Alcohol intake frequency: a few times a month Patient Tobacco Use Status: Never used Tobacco e-Cigarette/Vaping Use: Never Used Second Hand Smoke Exposure: No Substance Use Type: Marijuana service: No Current occupational status: unemployed Sexual orientation: Straight/Heterosexual Gender identity: Female Cognitive needs: No Hearing needs: No Vision needs: Yes (glasses) Female Reproductive History Menstrual Age of Menarche: 14 Questionnaire Thrive Questionnaire Date Thrive assessed: 05/16/25 I am a: Patient What is your living situation today?: I have a steady place to live Within the past 12 months, did the food you bought not last and you didn't have the money to get more?: Never true Within the past 12 months, did you worry whether your food would run out before you got money to buy more?: Never true Do you have trouble paying for medicines?: No Do you have trouble getting transportation to medical appointments?: No Do you have trouble paying your heating and electricity bill?: No Do you have trouble taking care of your child, family member or friend?: No Do you have trouble with day-to-day activities such as bathing, preparing meals, shopping, managing finances, etc.?: Yes Are you currently unemployed and looking for a job?: No Are you interested in more education?: No Please select the resources that you would like help with: Childcare Currently or been in a relationship where the following occur: No concerns reported THRIVE Score: 0 MARTIN-7 AMB Questionnaire MARTIN-7 Date MARTIN - 7 assessed: 11/30/24 Source: Developed by Drs. Guillaume Ramey, Trice Bose, Vernon Joseph and colleagues, with an educational shen from [employer] Review of Systems Const Reports body aches, Reports chills, Reports fever(s), Reports headache(s) and Denies poor appetite Eyes Reports no additional complaints ENT Denies dizziness, Reports headache(s), Reports odynophagia and Reports sore throat Card Denies chest pain, Denies edema, Denies lightheadedness and Denies dyspnea Resp Denies cough and Denies dyspnea GI Denies abdominal pain, Denies constipation, Denies diarrhea, Denies nausea, Reports odynophagia and Denies vomiting Reports no additional complaints Musc Reports no additional complaints and Denies abnormal gait Skin/Breast Reports system reviewed and no additional complaints, except as documented Neuro Denies abnormal gait, Denies dizziness and Reports headache(s) Psych Reports no additional complaints Physical exam (Primary Care) Vital Signs: Last Vital Signs Pulse 92 05/16/25 14:17 Resp 18 05/16/25 14:17 BP 120/70 05/16/25 14:17 Pulse Ox 99 05/16/25 14:17 Oxygen Delivery Method Room Air 05/16/25 14:17 BMI result Body Mass Index 19.2 Tobacco/Smoking Status: Tobacco use Status Tobacco use date assessed 05/16/25 05/16/25 14:23 Patient Tobacco Use Status Never used Tobacco 05/16/25 14:23 Tobacco use type 07/14/24 09:01 e-Cigarette/Vaping Use Never Used 05/16/25 14:23 Thrive Assessment: Date of Thrive Assessment Date Thrive assessed 05/16/25 05/16/25 14:23 Currently or been in a relationship where the following occur: No concerns reported Const General: cooperative, healthy appearing, comfortable and no acute distress Orientation/consciousness: patient oriented x3 HENMT Head: Yes normocephalic Ears: hearing grossly normal bilaterally, TM's normal bilaterally and EAC's normal General nose exam: Normal external nose present Face and sinus: Yes normal facial exam Mouth: oropharynx normal Throat: Yes posterior oropharynx normal and Yes tonsils absent Eyes General: appearance normal, both eyes and all related structures Conjunctivae: conjunctivae normal Neck Neck: Yes full ROM and Yes no lymphadenopathy Resp Effort & Inspection: normal respiratory effort Auscultation: clear to auscultation bilaterally, no crackles, no rales, no rhonchi and no wheezes Cardio Rate: regular rate Rhythm: regular rhythm Skin General skin exam: no rashes or lesions noted Neuro General: patient oriented x3 Gait exam (Neuro): Normal gait present Extrem General: Yes normal to inspection, Yes full ROM and No edema Psych Affect: normal affect Attitude: cooperative Insight: Good insight present (Psych) Judgement: Good judgement present (Psych) Coding Level of Care Code Est Pt Level 3 (86201) Diagnoses Sore throat J02.9 Assessment & Plan Assessment & Plan (1) Sore throat: Code(s): J02.9 - Acute pharyngitis, unspecified Category: Medical Plan: The patient's presentation with acute onset of myalgia, low-grade fever, headache, and pharyngitis is highly suggestive of a viral upper respiratory infection, with influenza or COVID-19 being likely culprits given current prevalence. The physical exam finding of an irritated pharynx with postnasal drip and a negative rapid strep test further support a viral etiology over bacterial pharyngitis. A bacterial sinus infection is considered less likely given the symptom duration of less than 7-10 days. A nasal swab for COVID-19, influenza, and RSV has been collected, with results pending. Management will be supportive, including rest and tzfa-crk-fkrzjwn medications such as Tylenol for fever, Mucinex for productive cough or congestion, Delsym/DayQuil for dry cough, and throat lozenges for pharyngitis. The patient was advised to follow up if symptoms do not improve within 5-7 days or if they worsen after a period of improvement. Plan This note was constructed using voice recognition software. While every effort has been made to ensure accuracy and coding file clerk, still areas may have been included sometimes these areas may affect the content or meeting of the given symptoms. Total time spent caring for the patient today was 20 minutes. This includes time spent before the visit reviewing the chart, time spent during the visit, and time spent after the visit and documentation. Patient was informed and verbally consented to the use of an ambient scribe for clinic note documentation during this visit. Orders: Orders AMB Rapid Strep Screen Today Z13.9 - Encounter for screening, unspecified SARS-CoV2/FLU/RSV Today R09.89 - Other specified symptoms and signs involving the circulatory and respiratory systems
[2025-05-16 14:17] VITALS: BP 120/70; PULSE 92; RESP 18; O2SAT 99; BMI 19.2
== END 2025-05-16 14:38 | disposition home or self-care (01) ==
LOC: HO.HMCH 14:06
PROVIDERS: PCP Physician Assistant
DX: J02.9 Acute pharyngitis, unspecified (principal)